=== PATIENT | female | born 1985 | race Caucasian/White ===

== ENCOUNTER 2017-03-17 18:34 | Inpatient (IN) ==
[2017-03-17] MEDS ORDERED: ONDANSETRON 4 MG/2 ML INJECTION IVP ONE (18:47)
[2017-03-17] MEDS ORDERED: NS 1,000 ML IV ONE ×2 (18:47→22:00)
--- NOTE | 2017-03-17 18:54 | Emergency Department Report ---
Headache HPI - General Chief Complaint: Headache <Huma Lubin - 03/17/17 18:54> Stated Complaint: vomitting <Huma Lubin - 03/17/17 18:54> Time Seen by Provider: 03/17/17 18:44 <Huma Lubin - 03/17/17 18:54> Source: patient <Huma Lubin - 03/17/17 18:54> Mode of arrival: ambulatory <Huma Lubin - 03/17/17 18:54> Limitations: no limitations <Huma Lubin - 03/17/17 18:54> - History of Present Illness HPI Narrative: She works at the [employer] here in [place]. Today she states that she had onset of headache. She has had headaches like this in the past but not this bad. She did start vomiting while at work. Had her come and get her and brought her to ER. Per her she had told him she passed out at work when she was vomiting. She is alert and oriented but very nauseated during initial examination. She is answering questions appropriately but occasional word will be garbled or non sense word. She does try to find the right word but does have trouble at times as well. She did not take anything prior to coming to ER. <Huma Lubin 03/17/17 20:00> MD Complaint: headache <Huma Lubin 03/17/17 18:54> Onset (ago): hour(s) <Huma Lubin 03/17/17 18:54> Onset description: gradual <Huma Lubin - 03/17/17 20:00> Location: diffuse <Huma Lubin 03/17/17 20:00> Severity: severe <Huma Lubin 03/17/17 20:00> Quality: aching <Huma Lubin 03/17/17 20:00> Relieving factors: nothing <Huma Lubin 03/17/17 20:00> Exacerbating factors: none <Huma Lubin - 03/17/17 20:00> Associated symptoms: nausea, vomiting <Huma Lubin - 03/17/17 20:00> Treatments prior to arrival: none <Huma Lubin 03/17/17 20:00> - Related Data Home Medications Medication Instructions Recorded Confirmed No known Home medications [No home 03/17/17 03/17/17 meds] <Huma Lubin 03/17/17 22:01> Allergies Allergy/AdvReac Type Severity Reaction Status Date / Time No Known Allergies Allergy Verified 03/17/17 19:45 <Huma Lubin 03/17/17 20:00> Review of Systems Constitutional: Denies: fever, chills, weakness <Huma Lubin 03/17/17 20: 00> Eyes: Denies: eye pain, vision change <Huma Lubin 03/17/17 20:00> ENT: Denies: ear pain, throat pain, congestion <Huma Lubin 03/17/17 20:00 > Cardiovascular: Denies: chest pain, palpitations, dyspnea on exertion <Huma Lubin 03/17/17 20:00> Respiratory: Denies: cough, dyspnea, wheezes <Huma Lubin 03/17/17 20:00> Gastrointestinal: Reports: nausea, vomiting. Denies: abdominal pain, diarrhea <Huma Lubin 03/17/17 20:00> Integumentary: Denies: rash <Huma Lubin 03/17/17 20:00> Neurological: Reports: headache. Denies: weakness, numbness, paresthesias < Huma Lubin - 03/17/17 20:00> [facility] Medical History Bacterial meningitis (Acute Medical) <Roshan Garrido H - 03/17/17 21:13> Clinic Medical History Bacterial meningitis (Acute Medical) <KatarinasheHuma Blake 03/17/17 22:37> Surgical History: bilateral knee scopes <Huma Lubin - 03/17/17 22:37> - Social History Smoking status: Never smoker <KatarinasheHuma Blake - 03/17/17 22:37> Substance use type: does not use <KatarinasheHuma Blake - 03/17/17 22:37> Alcohol intake frequency: does not drink <Huma Lubin [facility] 03/17/17 22:37> Physical Exam - Limitations Limitations: no limitations <Huma Lubin [facility] 03/17/17 20:00> - General General appearance: alert, other (is nauseated and has dry heaves and also appears in pain, keeps her eyes closed but does follow command) <Huma Lubin 03/17/17 20:00> - Normal Exams: Head:: Normocephalic without trauma <Huma Lubin 03/17/17 20:00> Eyes:: Pupils are PERRLA w/ EOMI, No scleral icterus, irritation, or foreign bodies noted <Huma Lubin 03/17/17 20:00> ENMT:: No facial trauma, nasal exudates, pharyngeal erythema, or exudates are noted <Huma Lubin 03/17/17 20:00> Neck:: Full range of motion, without adenopathy, JVD, bruits or thyromegaly < Huma Lubin 03/17/17 20:00> Chest/Respirations:: Clear all gray, with good airflow, and symmetry bilaterally <Huma Lubin 03/17/17 20:00> Cardiovascular:: Regular rate and rhythm, without murmur or gallop, Pulses 2+ all extremities, capillary refill, <2 seconds all extremities <Huma Lubin 03/17/17 20:00> Abdomen:: Bowel sounds positive, soft, non-tender, non-distended, no hepatosplenomegaly, masses or bruits noted <Huma Lubin [facility] 03/17/17 20:00> Lymphatic:: No lymphadenopathy, or lymphedema noted <KatarinaHuma [facility] 03/17/17 20:00> Musculoskeletal:: No tenderness, or deformity noted, good range of motion, all extremities <KatarinaHuma 03/17/17 20:00> Integumentary:: No rashes, hives, or bruising noted <KatarinaHuma 03/17/17 20:00> Neurological:: Patient is alert, and oriented, cranial nerves, motor/sensory/ cerebellar, exams w/o gross deficits, to observation <Huma Lubin N - 20:00> Psychiatric:: Patient exhibits, appropriate attention, emotion and affect < NoRichard nowaka Blake - 03/17/17 20:00> - Neck Neck exam: Present: normal inspection, full ROM, trachea midline. Absent: tenderness, meningismus <NoRichard nowaka Blake 03/17/17 22:37> - Expanded Neurological Exam Patient oriented to: Present: person, place, time <Huma Lubin N 03/17/17 20 :00> Speech: Absent: fluid speech (She does have one word garbled speech and does not alway make sense) <NoRichard nowaka N 03/17/17 20:00> Cranial nerves: Normal: EOM function (II, III, IV, ), facial palsy (VII), gag reflex (IX), tongue deviation (XII) <NoRichard nowaka N 03/17/17 20:00> Cerebellar function: Normal: heel to jefferson <NoRichard nowaka N - 03/17/17 20:00> Motor strength - LUE: 5/5 <Nold,Huma N - 03/17/17 20:00> Motor strength - RUE: 5/5 <NoldHuma N - 03/17/17 20:00> Motor strength - LLE: 5/5 <Nold,Huma N - 03/17/17 20:00> Motor strength - RLE: 5/5 <NoldHuma N - 03/17/17 20:00> Coma scale eye opening: spontaneous <NoldRicharda N - 03/17/17 20:00> Coma scale motor response: obeys commands <NoldRicharda N - 03/17/17 20:00> Coma scale verbal response: oriented <NoldRicharda N - 03/17/17 20:00> Coma scale total: 15 <NoldRicharda N - 03/17/17 23:54> Course Vital Signs Temperature 98.2 F 03/17/17 18:53 Pulse Rate 110 H 03/17/17 18:53 Respiratory Rate 26 H 03/17/17 18:53 Blood Pressure 113/59 03/17/17 18:53 Pulse Oximetry 99 03/17/17 18:53 Temperature 98.2 F 03/17/17 18:53 Pulse Rate 95 03/17/17 22:01 Respiratory Rate 16 03/17/17 22:01 Blood Pressure 114/74 03/17/17 22:01 Pulse Oximetry 99 03/17/17 22:01 <Rojasesrenea Lozano - 03/17/17 20:00> Procedures - Lumbar Puncture Time Out Performed: Yes <HemaRoshan [facility] 03/17/17 21:15> Patient Position: left lateral decubitus <HemaRoshan [facility] 03/17/17 21:15> Skin Prep: Povidone-Iodine 1% <Roshan Garrido [facility] 03/17/17 21:15> Local Anesthetic: [facility]ocaine 1[facility]15> Amount of anesthesia used (mL): 5 <[facility] 03/17/17 21:15> Spinal Needle Gauge: 22G <[facility] 03/17/17 21:15> Interspace Used: L4-L5 [facility] 03/17/17 21:15> Fluid Initially Obtained: cloudy <Roshan Garrido [facility] 03/17/17 21:15> Additional Comments: Patient had a slightly low opening pressure was not measured. We were able to fill to sample tubes with 2 mL of slightly cloudy CSF both, for a total of 4 mL. At which time the patient's CSF flow stopped. Repositioning of the needle did not improve flow, therefore the procedure was halted at that point. 2 vials , 2 mL each have been sent to the lab for evaluation. <HemaRoshan [facility] 03/17/17 21:15> Complications: none <Roshan Garrido [facility] 03/17/17 21:15> Headache - MDM Narrative Medical decision making narrative: 1954- Ct scan of head is negative. Did reevaluate patient. She was resting comfortably on cart and does responds to voice. She does follow command of opening eyes but does not answer questions. She does have episode of dry heaves and does attempt to sit up with this. She does appear restless but after dry heaves she calms down and closes her eyes. Does not answer questions. Appears mildly 2047 sedated. UDS and ETOH added to the labs. 2047- Did reevaluate patient. She does open her eyes but does not answer questions or follow all commands. Her is at bedside and states that she had texted him about 1530 that she had a headache, at 1630 that he should come get their daughter. When he showed up he picked them both up and they came to ER. He does not recall her having any history of headaches or symptoms such as this. Did discuss LP with him and he is ok with this procedure. 2120- LP complete and CSF sent to lab. 2227- Discussed labs including CSF results, CT scan, HPI, and exam with Dr Henry. He will accept patient for admission at this time. We did initiate 1 G Rocephin IV after LP done as well as Vancomycin 1 G as well. Second liter of IVF infusing as well. <Huma Lubin - 03/17/17 23:54> - Differential Diagnosis Differential diagnosis: Likely: migraine, tension headache, subarachnoid hemorrhage, headache, meningitis <Huma Lubin - 03/17/17 20:50> - Lab Data Attestation: I reviewed the patient's lab results. <Huma Lubin - 03/17/17 20:00> Result diagrams: 03/17/17 18:51 03/17/17 18:51 <Huma Lubin - 03/17/17 18:54> Lab Results 03/17/17 03/17/17 03/17/17 Range/Units 18:51 18:51 18:51 WBC 16.1 H (4.5-11.0) T/MM3 RBC 4.26 (4.00-5.20) M/MM3 Hgb 13.8 (12-16) GM/DL Hct 41.0 (36-46) % MCV 96.2 (80-100) UM3 MCH 32.4 (26-34) UUG MCHC 33.7 (31-37) GM/DL RDW Std Deviation 38.7 (36.9-50.2) FL Plt Count 160 (130-400) T/MM3 MPV 10.0 (9.4-12.4) UM3 Immature Gran % (Auto) Not performed Neut % (Auto) Not performed Lymph % (Auto) Not performed [place] % (Auto) Not performed Eos % (Auto) Not performed Baso % (Auto) Not performed Neut # (Auto) Not performed Lymph # (Auto) Not performed [place] # (Auto) Not performed Eos # (Auto) Not performed Baso # (Auto) Not performed Abs Immat Gran (auto) Not performed Neutrophils % (Manual) 74.0 H (33-66) % Band Neutrophils % 7.0 H (0-6) % Lymphocytes % (Manual) 17.0 L (23-45) % Monocytes % (Manual) 2.0 (0-9.0) % Neutrophils # (Manual) 11.9 H (1.8-7.7) T/MM3 Band Neutrophils # 1.1 T/MM3 Lymphocytes # (Manual) 2.7 (1-4.8) T/MM3 Monocytes # (Manual) 0.3 (0-0.8) T/MM3 RBC Morph Comment Normal Turbidity < 20 (0-20) Sodium 141 (134-144) MEQ/L Potassium 3.4 L (3.6-5) MEQ/L Chloride 105 (98-107) MEQ/L Carbon Dioxide 24 (22-30) MEQ/L Anion Gap 12 (5-15) MEQ/L BUN 10.0 (7-17) MG/DL Creatinine 0.6 L (0.7-1.2) MG/DL GFR Calculation 118 BUN/Creatinine Ratio 17 (6-26) RATIO Glucose 128 H (65-110) MG/DL Calculated Osmolality 272 (261-280) MOSM/KG Calcium 9.2 (8.4-10.2) MG/DL Total Bilirubin 0.70 (0.20-1.30) MG/DL Icterus Index < 2 (0-7) AST 21 (14-36) U/L ALT 36 (9-52) U/L Alkaline Phosphatase 61 (38-126) U/L Total Protein 7.1 (6.3-8.2) G/DL Albumin 4.4 (3.5-5.0) G/DL Globulin 2.7 (2.4-3.6) G/DL Albumin/Globulin Ratio 1.6 (1.1-2.2) RATIO Serum , Qual Negative (Negative) Specimen Hemolysis < 15 (0-25) Ur Collection Type Urine Color (YELLOW) Urine Clarity Urine pH (5.0-8.0) Ur Specific [place] (1.015-1.025) Urine Protein (NEGATIVE) Urine Glucose (UA) (NEGATIVE) Urine Ketones (NEGATIVE) Urine Occult Blood (NEGATIVE) Urine Nitrate (NEGATIVE) Urine Bilirubin (NEGATIVE) Urine Urobilinogen (NORMAL) EU/DL Ur Leukocyte Esterase (NEGATIVE) Urinalysis Comment CSF Appearance CSF Color CSF RBC (0-0) /MM3 CSF Tot Nucleated Cells (0-5) /MM3 CSF Neutrophils % CSF Lymphocytes CSF Monocytes CSF Eosinophils % CSF Basophils CSF Other Cells % CSF Glucose (40-70) MG/DL CSF Total Protein (12-60) MG/DL Urine Opiates Screen ng/mL Ur Oxycodone Screen ng/mL Urine Methadone Screen ng/mL Ur Propoxyphene Screen ng/mL Ur Barbiturates Screen ng/mL U Tricyclic Antidepress ng/mL Ur Phencyclidine Scrn ng/mL Ur Amphetamines Screen ng/mL U Methamphetamines Scrn ng/mL U Benzodiazepines Scrn ng/mL Urine Cocaine Screen ng/mL U Cannabinoids Screen ng/mL Alcohol, Quantitative (<10) MG/DL Cryptococcus Ag (Negative) CMV DNA Detection (Negative) E. coli (PCR) (Negative) H. influenzae DNA (Negative) HSV I DNA PCR (Negative) HSV II DNA PCR (Negative) HHV-6 DNA (PCR) (Negative) Listeria (PCR) (Negative) N. meningitidis (PCR) (Negative) Parechovirus (PCR) (Negative) Entero/Rhino (PCR) (Negative) Group B Strep (PCR) (Negative) Strep pneumoniae (PCR) (Negative) VZV DNA (PCR) (Negative) 03/17/17 03/17/17 03/17/17 Range/Units 18:51 20:01 21:27 WBC (4.5-11.0) T/MM3 RBC (4.00-5.20) M/MM3 Hgb (12-16) GM/DL Hct (36-46) % MCV (80-100) UM3 MCH (26-34) UUG MCHC (31-37) GM/DL RDW Std Deviation (36.9-50.2) FL Plt Count (130-400) T/MM3 MPV (9.4-12.4) UM3 Immature Gran % (Auto) Neut % (Auto) Lymph % (Auto) [place] % (Auto) Eos % (Auto) Baso % (Auto) Neut # (Auto) Lymph # (Auto) [place] # (Auto) Eos # (Auto) Baso # (Auto) Abs Immat Gran (auto) Neutrophils % (Manual) (33-66) % Band Neutrophils % (0-6) % Lymphocytes % (Manual) (23-45) % Monocytes % (Manual) (0-9.0) % Neutrophils # (Manual) (1.8-7.7) T/MM3 Band Neutrophils # T/MM3 Lymphocytes # (Manual) (1-4.8) T/MM3 Monocytes # (Manual) (0-0.8) T/MM3 RBC Morph Comment Turbidity (0-20) Sodium (134-144) MEQ/L Potassium (3.6-5) MEQ/L Chloride (98-107) MEQ/L Carbon Dioxide (22-30) MEQ/L Anion Gap (5-15) MEQ/L BUN (7-17) MG/DL Creatinine (0.7-1.2) MG/DL GFR Calculation BUN/Creatinine Ratio (6-26) RATIO Glucose (65-110) MG/DL Calculated Osmolality (261-280) MOSM/KG Calcium (8.4-10.2) MG/DL Total Bilirubin (0.20-1.30) MG/DL Icterus Index (0-7) AST (14-36) U/L ALT (9-52) U/L Alkaline Phosphatase (38-126) U/L Total Protein (6.3-8.2) G/DL Albumin (3.5-5.0) G/DL Globulin (2.4-3.6) G/DL Albumin/Globulin Ratio (1.1-2.2) RATIO Serum , Qual (Negative) Specimen Hemolysis (0-25) Ur Collection Type Urine Color (YELLOW) Urine Clarity Urine pH (5.0-8.0) Ur Specific [place] (1.015-1.025) Urine Protein (NEGATIVE) Urine Glucose (UA) (NEGATIVE) Urine Ketones (NEGATIVE) Urine Occult Blood (NEGATIVE) Urine Nitrate (NEGATIVE) Urine Bilirubin (NEGATIVE) Urine Urobilinogen (NORMAL) EU/DL Ur Leukocyte Esterase (NEGATIVE) Urinalysis Comment CSF Appearance CSF Color CSF RBC (0-0) /MM3 CSF Tot Nucleated Cells (0-5) /MM3 CSF Neutrophils % CSF Lymphocytes CSF Monocytes CSF Eosinophils % CSF Basophils CSF Other Cells % CSF Glucose (40-70) MG/DL CSF Total Protein (12-60) MG/DL Urine Opiates Screen Negative ng/mL Ur Oxycodone Screen Negative ng/mL Urine Methadone Screen Negative ng/mL Ur Propoxyphene Screen Negative ng/mL Ur Barbiturates Screen Negative ng/mL U Tricyclic Antidepress Negative ng/mL Ur Phencyclidine Scrn Negative ng/mL Ur Amphetamines Screen Negative ng/mL U Methamphetamines Scrn Negative ng/mL U Benzodiazepines Scrn Negative ng/mL Urine Cocaine Screen Negative ng/mL U Cannabinoids Screen Negative ng/mL Alcohol, Quantitative <10 (<10) MG/DL Cryptococcus Ag Negative (Negative) CMV DNA Detection Negative (Negative) E. coli (PCR) Negative (Negative) H. influenzae DNA Negative (Negative) HSV I DNA PCR Negative (Negative) HSV II DNA PCR Negative (Negative) HHV-6 DNA (PCR) Negative (Negative) Listeria (PCR) Negative (Negative) N. meningitidis (PCR) Negative (Negative) Parechovirus (PCR) Negative (Negative) Entero/Rhino (PCR) Negative (Negative) Group B Strep (PCR) Negative (Negative) Strep pneumoniae (PCR) Detected A (Negative) VZV DNA (PCR) Negative (Negative) 03/17/17 03/17/17 Range/Units 21:32 21:46 WBC (4.5-11.0) T/MM3 RBC (4.00-5.20) M/MM3 Hgb (12-16) GM/DL Hct (36-46) % MCV (80-100) UM3 MCH (26-34) UUG MCHC (31-37) GM/DL RDW Std Deviation (36.9-50.2) FL Plt Count (130-400) T/MM3 MPV (9.4-12.4) UM3 Immature Gran % (Auto) Neut % (Auto) Lymph % (Auto) [place] % (Auto) Eos % (Auto) Baso % (Auto) Neut # (Auto) Lymph # (Auto) [place] # (Auto) Eos # (Auto) Baso # (Auto) Abs Immat Gran (auto) Neutrophils % (Manual) (33-66) % Band Neutrophils % (0-6) % Lymphocytes % (Manual) (23-45) % Monocytes % (Manual) (0-9.0) % Neutrophils # (Manual) (1.8-7.7) T/MM3 Band Neutrophils # T/MM3 Lymphocytes # (Manual) (1-4.8) T/MM3 Monocytes # (Manual) (0-0.8) T/MM3 RBC Morph Comment Turbidity (0-20) Sodium (134-144) MEQ/L Potassium (3.6-5) MEQ/L Chloride (98-107) MEQ/L Carbon Dioxide (22-30) MEQ/L Anion Gap (5-15) MEQ/L BUN (7-17) MG/DL Creatinine (0.7-1.2) MG/DL GFR Calculation BUN/Creatinine Ratio (6-26) RATIO Glucose (65-110) MG/DL Calculated Osmolality (261-280) MOSM/KG Calcium (8.4-10.2) MG/DL Total Bilirubin (0.20-1.30) MG/DL Icterus Index (0-7) AST (14-36) U/L ALT (9-52) U/L Alkaline Phosphatase (38-126) U/L Total Protein (6.3-8.2) G/DL Albumin (3.5-5.0) G/DL Globulin (2.4-3.6) G/DL Albumin/Globulin Ratio (1.1-2.2) RATIO Serum , Qual (Negative) Specimen Hemolysis (0-25) Ur Collection Type Urine, catheter Urine Color Yellow (YELLOW) Urine Clarity Sl cloudy Urine pH 8.5 A (5.0-8.0) Ur Specific [place] 1.010 L (1.015-1.025) Urine Protein Negative (NEGATIVE) Urine Glucose (UA) Negative (NEGATIVE) Urine Ketones Negative (NEGATIVE) Urine Occult Blood Trace-intact (NEGATIVE) Urine Nitrate Negative (NEGATIVE) Urine Bilirubin Negative (NEGATIVE) Urine Urobilinogen 0.2 (NORMAL) EU/DL Ur Leukocyte Esterase Negative (NEGATIVE) Urinalysis Comment Microscopic not ind. CSF Appearance Cloudy CSF Color Colorless CSF RBC 2000 H (0-0) /MM3 CSF Tot Nucleated Cells 2980 H (0-5) /MM3 CSF Neutrophils 100 % CSF Lymphocytes Not performed CSF Monocytes Not performed CSF Eosinophils % Not performed CSF Basophils Not performed CSF Other Cells % Not performed CSF Glucose 30 L (40-70) MG/DL CSF Total Protein 531 H (12-60) MG/DL Urine Opiates Screen ng/mL Ur Oxycodone Screen ng/mL Urine Methadone Screen ng/mL Ur Propoxyphene Screen ng/mL Ur Barbiturates Screen ng/mL U Tricyclic Antidepress ng/mL Ur Phencyclidine Scrn ng/mL Ur Amphetamines Screen ng/mL U Methamphetamines Scrn ng/mL U Benzodiazepines Scrn ng/mL Urine Cocaine Screen ng/mL U Cannabinoids Screen ng/mL Alcohol, Quantitative (<10) MG/DL Cryptococcus Ag (Negative) CMV DNA Detection (Negative) E. coli (PCR) (Negative) H. influenzae DNA (Negative) HSV I DNA PCR (Negative) HSV II DNA PCR (Negative) HHV-6 DNA (PCR) (Negative) Listeria (PCR) (Negative) N. meningitidis (PCR) (Negative) Parechovirus (PCR) (Negative) Entero/Rhino (PCR) (Negative) Group B Strep (PCR) (Negative) Strep pneumoniae (PCR) (Negative) VZV DNA (PCR) (Negative) <Huma Lubin - 03/17/17 20:00> - Radiology Data Attestation: I reviewed the patient's radiology results. <Huma Lubin 10/26 20:00> Ct head: No acute intracranial abnormality <Huma Lubin 03/17/17 20:00> Disposition Clinical Impression: Bacterial meningitis <Huma Lubin 03/17/17 22:30> Disposition: 02 To [facility] Acute Care <Huma Lubin 03/17/17 22:30> Condition: Stable <Huma Lubin 03/17/17 22:30> Prescriptions: No Action No known Home medications [No home meds] 0 #0 misc <Huma Lubin - 22:01> Referrals: Lynne Cohn DO [Family Provider] - <Huma Lubin 03/17/17 18 :54> Time of Disposition: 22:27 <Huma Lubin 03/17/17 22:30> - Seen By: midlevel <Huma Lubin 03/17/17 22:30>
[2017-03-17] MEDS ORDERED: PROCHLORPERAZINE 10 MG/2 ML INJECTION IVP ONE (18:57)
[2017-03-17] MEDS ORDERED: KETOROLAC 30 MG/ML INJECTION IVP ONE (19:54)
--- OUTSIDE RECORDS SUMMARY | 2017-03-17 21:19 | External Medical Summary | Continuity of Care Document ---
:1985 Author Organization [facility] Address [address] [place], [place] [id number] Phone Care Team Providers Name Role Phone Amandeep Hutchison MD Unavailable Unavailable Allergies, Adverse Reactions, Alerts Substance Reaction Severity Status No Known Drug Allergies Unknown Active Medications Medication Instructions Dosage Effective Dates Status Comments (start - stop) fluconazole 150 mg take 1 tablet by 150 MG - Active tablet oral route once fluconazole 150 mg take 1 tablet by 150 MG - Active tablet oral route once PROBIOTIC (unknown - Active strength) FLONASE (unknown spray 1 spray by - Active strength) intranasal route every day in each nostril Sprintec (28) 0.25 take 1 tablet by Not Available - Active 3 packs mg-35 mcg tablet oral route every day take 3 placebo pills and then start a new pack Claritin 10 mg take 1 tablet by 10 MG - Active tablet oral route every day + DHA 28 - Active mg iron-975 mcg-200 mg oral pack Problems Condition Effective Dates (start - stop) Clinical Status 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, [address], [place], [place], [place], [id number], [place], [place] [id number], tel:[phone] [place]. [address] tel:[phone] [facility] -2016 [facility], [address], [place], [place], [place], [id number], [place] [id number], tel:[phone] [place]. [address] tel:[phone] [facility] In Womens -2016 [facility], [address], [place], [place], [place], [id number], [place] [id number], tel:[phone] [place]. [address] tel:[phone] [facility] Encntr for Hild Referring In Womens rn social work exam -2016 [facility]. Provider: [facility], (general) [address], (routine) Bryon Pedroza [place], [place], w/o abn [place], [address] [id number], [place], [place] [id number], [place], tel:[phone] [place], [address] tel:[phone]. [id number] tel:[phone] [facility]om[facility] -2016 [facility], [address], [place], [place], [place], [id number], [place] [id number], tel:[phone] [place]. [address] tel:[phone] [facility] Referring In Womens Follow-Up, -2015 [facility]. Provider: Health [facility], Routine [address], [place], [place], [place], [address] [id number], [place], [place] [id number], [place], tel:[phone] [place], [address] tel:[phone]. [id number] tel:[phone] [facility] Hild Referring In Womens -2014 [facility] Provider: [facility], [address], Bryon Pedroza, [place], [place], [address] [id number], [place], [place] [id number], [place], tel:[phone] [place], [address] tel:[phone]. [id number] tel:[phone] [facility] Vaginal Hild Referring In Womens -2014 [facility] Provider: Health [facility], Lesion [address], [place]za, [place], [place], [address] [id number], [place] [id number], [place], tel:[phone] [place], [address] tel:[phone]. [id number] tel:[phone] [facility] Hild Referring In Womens -2014 [facility] Provider: [facility], [address] [facility] [address], [place], [place], [address] [place], [place], [place], [place], [id number], [place], [place] [id number], [place], tel:[phone] [place]. [id number]. [address] tel:[phone] tel:[phone] [facility] -2014 [facility], [address], [place], [place], [place], [id number], [place] [id number], tel:[phone] [place]. [address] tel:[phone] [facility], [address], [place], [place], [place], [id number], [place], [id number], tel:[phone] [place]. [address] tel:[phone] Family History Family Member Diagnosis Age At Onset Mother Hypertension Paternal Grandmother Thyroid Disorder Paternal Grandfather Cardiovascular Disease Maternal Grandmother Osteoporosis Immunizations Vaccine Date Status Comments Tdap completed Source: New Immunization Record Influenza, seasonal, injectable, completed Source: Other Provider preservative free, 3 yrs or older Payers Payer name Insurance type Covered republican ID Authorization(s) [facility] [id number] [facility] [id number] [facility] CI [id number] [facility] CI [id number] Social History Type Description Quantity Date Captured Unknown Vital Signs Date / Height Weight BMI Pulse Blood Temperature Respiratory Body Head BMI Time: Rate Pressure Rate Surface Circumference percentile Area Unknown Chief Complaint And Reason For Visit Unknown Chief Complaint And Reason For Visit Reason For Referral Reason For Referral Unknown Plan Of Care Date Type Action Status Goal Lifestyle education regarding diet completed Goal Lifestyle education regarding diet completed Appointment [place] BOOKED Date Type Problem Goal Intervention Status Start Date Unknown. History Of Present Illness Encounter Date Complaint History Of Present Illness This patient has no known history of present illness Functional Status Encounter Date Functional Assessment Cognitive Assessment Unknown Medications Administered Medication Instructions Dosage Effective Dates (start - stop) Status Comments Drug Treatment Unknown Instructions Date Instruction Additional Information Giving encouragement to exercise Related to Body mass index 23.0-23.9 Giving encouragement to exercise Related to Body mass index 23.0-23.9 Lifestyle education regarding diet Related to Body mass index 23.0-23.9 Giving encouragement to exercise Related to Body mass index 25.0-25.9 Lifestyle education regarding diet Related to Body mass index 25.0-25.9 selecting a care provider gestational glucose lab screening placing baby to sleep on back placing baby to sleep in a crib, bassinet, or portable crib baby sleep environment includes a firm mattress and fitted sheet removing blankets, pillows, bumper pads, stuffed toys from baby sleep env.
--- OUTSIDE RECORDS SUMMARY | 2017-03-17 21:20 | External Medical Summary | Continuity of Care Document ---
:1985 Author Organization [facility] Address [address] [place], [place] [id number] Phone Care Team Providers Name Role Phone Amandeep Hutchison MD Unavailable Unavailable Allergies, Adverse Reactions, Alerts Substance Reaction Severity Status No Known Drug Allergies Unknown Active Medications Medication Instructions Dosage Effective Dates Status Comments (start - stop) fluconazole 150 take 1 tablet by 150 MG - Active mg tablet oral route once fluconazole 150 take 1 tablet by 150 MG - Active mg tablet oral route once PROBIOTIC - Active (unknown strength) FLONASE (unknown spray 1 spray by - Active strength) intranasal route every day in each nostril Sprintec (28) take 1 tablet by Not Available - Active 3 packs 0.25 mg-35 mcg oral route every tablet day take 3 placebo pills and then start a new pack Claritin 10 mg take 1 tablet by 10 MG - Active tablet oral route every day + DHA 28 - Active mg iron-975 mcg-200 mg oral pack fluconazole 10 take 10 milliliter 100 MG - No Longer mg/mL oral by oral route Active suspension every day Problems Condition Effective Dates (start - stop) Clinical Status 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 Health [facility], [address], [place], [place], [place], [id number], [place], [place] [id number], tel:[phone] [place]. [address] tel:[phone] [facility] In Wom[facility] -2016 [facility], [address], [place], [place], [place], [id number], [place] [id number], tel:[phone] [place]. [address] tel:[phone] [facility] In Womens -2016 [facility], [address], [place], [place], [place], [id number], [place] [id number], tel:[phone] [place]. 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 Provider: Joey ALONZO, (general) [address], (routine) Bryon [place], [place], [place] abn [place], [address] [id number], [place], [place], [place] [id number], [place], tel:[phone] [place], [address] tel:[phone]. [id number] tel:[phone] [facility] In Womens -2017 [facility], [address], [place], [place], [place], [id number], [place] [id number], tel:[phone] [place]. [address] tel:[phone] [facility] Hild Referring In Womens Follow-Up, -2015 [facility] Provider: Health [facility], Routine [address], [place], Bry[place] L, [place], [place], [address] [id number], [place], [place], [place] [id number], [place], tel:[phone] [place], [address] tel:[phone]. [id number] tel:[phone] [facility] Hild Referring In Womens -2014 [facility]. Provider: Health PA, [address], [place], Bry[place] L, [place], [place], [address] [id number], [place], [place], [place] [id number], [place], tel:[phone] [place], [address] tel:[phone]. [id number] tel:[phone] [facility] Hild Referring In Womens Discharge -2014 [facility] Provider: Health [facility], [place] [address], [place], Bry[place] L, [place], [place], [address] [id number], [place], [place] [id number], [place], [place]:[phone] [place], [address] tel:[phone]. [id number] tel:[phone] [facility] Hild Referring In Womens -2014 [facility] Provider: Health [facility], [address] [facility] [address], [place], [place], [address] [place], [place], [place], [place], [id number], [place], [place] [id number], [place], tel:[phone] [place]. [id number]. [address] tel:[phone] tel:[phone] [facility] -2014 [facility], [address], [place], [place], [place], [id number], [place], [place] [id number], tel:[phone] [place]. [address] tel:[phone] [facility] Hild In Women -2010 [facility] [place], [address], [place], [place], [place], [id number], [place], [id number], tel:[phone] [place]. [address] tel:[phone] Family History Family Member Diagnosis Age At Onset Mother Hypertension Paternal Grandmother Thyroid Disorder Paternal Grandfather Cardiovascular Disease Maternal Grandmother Osteoporosis Immunizations Vaccine Date Status Comments Tdap completed Source: New Immunization Record Influenza, seasonal, injectable, completed Source: Other Provider preservative free, 3 yrs or older Payers Payer name Insurance type Covered libertarian ID Authorization(s) [employer]/BCBS [id number] [facility] CI [id number] [facility] [id number] [facility] [id number] Social History Type Description Quantity Date Captured [...] Medications Administered Medication Instructions Dosage Effective Dates Status Comments (start - stop) fluconazole 10 take 10 milliliter 100 MG - No Longer mg/mL oral by oral route every Active suspension day Instructions Date Instruction Additional Information Giving encouragement [...]
--- OUTSIDE RECORDS SUMMARY | 2017-03-17 21:20 | External Medical Summary | Referral Summary ---
:1985 Author Organization [facility] Address [address] [place] [address] [place] [address] Care Team Providers Name Role Phone Lynne Cohn Primary Care Physician Encounter VC Date(s): 11/30/15 - 11/30/15 [facility] [address] [place] [phone] [place] Discharge Diagnosis: Dizziness Discharge Disposition: 01-Home or Self Care Attending Physician: Lynne Cohn DO Admitting Physician: Lynne Cohn DO Vital Signs Most recent to oldest [Reference Range]: 1 Temperature Tympanic [36.6-38.1 degC] 36.9 degC (11/30/15 12:58 PM) Peripheral Pulse Rate [60-100 bpm] 77 bpm (11/30/15 12:58 PM) Respiratory Rate [14-20 br/min] 16 br/min (11/30/15 12:58 PM) Blood Pressure [90-140/60-90 mmHg] 118/70 mmHg (11/30/15 12:58 PM) SpO2 98 % (11/30/15 12:58 PM) Problem List Condition Effective Dates Status Health Status Informant Acute pain(Confirmed) Active At risk for falls(Confirmed)1 Active Chronic constipation(Confirmed) Active Chronic headaches(Confirmed) Active Hepatitis B immune(Confirmed)2 Resolved (Confirmed) 09/20/14 - 05/15/15 Resolved Rubella immune(Confirmed)3 Resolved Varicella immune(Confirmed)4 Resolved 1This problem was added by Discern Expert. Positive Titer~Immune per [facility] [id number]/20/09 Positive Titer~Immune per [facility] reifrbr65/4/12 Positive Titer~ Immune per [facility] Records Allergies, Adverse Reactions, Alerts No Known Medication Allergies Medications Claritin mg, 0 Refill(s) Start Date: 05/08/15 Status: Orderedmultivitamin Daily, 0 Refill(s) Start Date: 03/21/14 Status: OrderedOrtho Micronor 0.35 mg oral tablet 0.35 mg 1 tabs, Oral, Daily, # 28 tabs, 0 Refill(s), other reason (Rx) Start Date: 11/30/15 Status: OrderedTylenol Caplet mg, Oral, q4hr, 0 Refill(s) Start Date: 05/15/15 Status: Ordered Results No data available for this section Immunizations Vaccine Date Refusal Reason tetanus/diphth/pertuss (Tdap) adult/adol 11/28/08 hepatitis B adult vaccine 10/07/07 hepatitis B adult vaccine 06/22/07 hepatitis B adult vaccine 04/06/07 influenza virus vaccine, inactivated 02/07/15 influenza virus vaccine, inactivated 02/21/14 measles/mumps/rubella virus vaccine 06/11/93 measles/mumps/rubella virus vaccine 08/23/88 Procedures Procedure Date Related Diagnosis Body Site Arthroscopic knee operation Tooth extraction Social History Social History Type Response Smoking Status Never smoker Assessment and Plan Extracted from: Title: Office Visit Note Author: Lynne Cohn DO Date: 11/30/15 Assessment/Plan Dizziness We will go ahead and get a CBC, BMP, TSH to evaluate the dizziness. Her orthostatic vital signs were normal. If herlab work reveals no cause we will give her the option ofa Holter monitor and/ora tilt table test for continued evaluation. Form was filled out for her wellness visit as she is up-to-date on her preventative health. She declined FLP today. Ordered: Basic Metabolic Panel CBC w/ Differential Office Visit Level 3 Est 24449 TSH with Reflex Free T4 Orders: norethindrone, 0.35 mg 1 tabs, Oral, Daily, # 28 tabs, 0 Refill(s), other reason (Rx)
--- OUTSIDE RECORDS SUMMARY | 2017-03-17 21:20 | External Medical Summary | Referral Summary ---
:1985 Author Organization [facility] Address [address] [place] [address] Care Team Providers Name Role Phone Amandeep Hutchison Primary Care Physician Encounter VC Date(s): 05/15/15 - 05/15/15 [facility] [address], [place] [address] Discharge Diagnosis: False labor Discharge Diagnosis: Discharge Disposition: 01-Home or Self Care Attending Physician: Sh[place] Robles MD Admitting Physician: Shasta Robles MD Vital Signs Most recent to oldest [Reference Range]: 1 Temperature Oral [35.8-37.3 degC] 36.9 degC (05/15/15 7:59 AM) Peripheral Pulse Rate [60-100 bpm] 68 bpm (05/15/15 7:59 AM) Heart Rate Monitored [60-100 bpm] 74 bpm (05/15/15 9:30 AM) Respiratory Rate [14-20 br/min] 18 br/min (05/15/15 7:59 AM) Blood Pressure [90-140/60-90 mmHg] 131/82 mmHg (05/15/15 9:30 AM) Problem List Condition Effective Dates Status Health Status Informant At risk for falls(Confirmed)1 Active Chronic constipation(Confirmed) Active Chronic headaches(Confirmed) Active Hepatitis B immune(Confirmed)2 Resolved Rubella immune(Confirmed)3 Resolved Varicella immune(Confirmed)4 Resolved 1This problem was added by Discern Expert. Positive Titer~Immune per [facility] jnevric94/20/09 Positive Titer~Immune per [facility] mqckpon28/4/12 Positive Titer~ Immune per [facility] Records Allergies, Adverse Reactions, Alerts No Known Medication Allergies Medications Benadryl 0 Refill(s) Start Date: 05/15/15 Status: OrderedClaritin mg, 0 Refill(s) Start Date: 05/08/15 Status: Orderedmultivitamin Daily, 0 Refill(s) Start Date: 03/21/14 Status: OrderedPriLOSEC Oral, Daily, 0 Refill(s) Start Date: 05/08/15 Status: OrderedTylenol Caplet mg, Oral, q4hr, 0 [...] Smoking Status Never smoker Assessment and Plan No data available for this section
--- OUTSIDE RECORDS SUMMARY | 2017-03-17 21:20 | External Medical Summary | Referral Summary ---
:1985 Author Organization [facility] Address [address] [place] [address] [place] [address] Care Team Providers Name Role Phone Lynne Cohn Primary Care Physician Encounter VC Date(s): 07/04/16 - 07/04/16 [facility] [address] [place] [phone] [place] Discharge Diagnosis: Benign mole Discharge Disposition: 01-Home or Self Care Attending Physician: Lynne Cohn DO Admitting Physician: Lynne Cohn DO Vital Signs Most recent to oldest [Reference Range]: 1 Temperature Oral [35.8-37.3 degC] 36.7 degC (07/04/16 8:28 AM) Peripheral Pulse Rate [60-100 bpm] 90 bpm (07/04/16 8:28 AM) Respiratory Rate [14-20 br/min] 20 br/min (07/04/16 8:28 AM) Blood Pressure [90-140/60-90 mmHg] 110/80 mmHg (07/04/16 8:28 AM) Problem List Condition Effective Dates Status Health Status Informant Acute pain(Confirmed) Active At risk for falls(Confirmed)1 Active Chronic constipation(Confirmed) Active Chronic headaches(Confirmed) Active Hepatitis B immune(Confirmed)2 Resolved (Confirmed) 09/20/14 - 05/15/15 Resolved Rubella immune(Confirmed)3 Resolved Varicella immune(Confirmed)4 Resolved 1This problem was added by Discern Expert. Positive Titer~Immune per [facility] /20/09 Positive Titer~Immune per [facility] /4/12 Positive Titer~ Immune per [facility] Records Allergies, [...] No data available for this section Immunizations Given and Recorded Vaccine Date Status Refusal Reason tetanus/diphth/pertuss (Tdap) adult/adol 11/28/08 Recorded hepatitis B adult vaccine 10/07/07 Recorded hepatitis B adult vaccine 06/22/07 Recorded hepatitis B adult vaccine 04/06/07 Recorded influenza virus vaccine, inactivated1 02/09/16 Recorded influenza virus vaccine, inactivated 02/07/15 Recorded influenza virus vaccine, inactivated 02/21/14 Recorded measles/mumps/rubella virus vaccine 06/11/93 Recorded measles/mumps/rubella virus vaccine 08/23/88 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 The lesion was cleansed with ChloraPrep 3 and then anest hetized with 1 mL of 1 percent lidocaine with epinephrine. Once anesthesia was achievedthe lesion was removed utilizing a derma blade. Hemostasis was achieved utilizing silver nitrate. Patient t olerated procedure well with no complications. Wound care was discussed. Return to clinic as needed. Ordered: Office Visit Level 3 Est 68350 Shave 1 Lesion; Trunk, Arms Or Legs (0.6 To 1.0 cm) [id number]
--- OUTSIDE RECORDS SUMMARY | 2017-03-17 21:22 | External Medical Summary | Continuity of Care Document ---
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, [address], [place], [place], [place], [id number], [place], [place] [id number], tel:[phone] [place]. [address] tel:[phone] [facility] Hild In Womens -2016 [facility], [address], [place], [place], [place], [id number], [place] [id number], tel:[phone] [place]. [address] tel:[phone] [facility] H[facility] In Womens -2016 [place], [address], [place], [place], [place], [id number], [place] [id number], tel:[phone] [place]. 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 Provider: Health [facility], (general) [address], (routine) Bryon Pedroza [place], [place], w/o abn [place], [address] [id number], [place], [place] [id number], [place], tel:[phone] [place], [address] tel:[phone]. [id number] tel:[phone] [facility] In Womens -2016 [facility], [address], [place], [place], [place], [id number], [place] [id number], tel:[phone] [place]. [address] tel:[phone] [facility] Hild Referring In Womens Follow-Up, -2015 [facility]. Provider: Health CHERI, Routine [address], [place] Pedroza, [place], [place], [address] [id number], [place], [place] [id number], [place], tel:[phone] [place], [address] tel:[phone]. [id number] tel:[phone] [facility] Hild Referring In Womens -2014 [place]. Provider: Health [place], [address], Bryon Pedroza, [place], [address] [id number], [place], [place] [id number], [place], tel:[phone] [place], [address] tel:[phone]. [id number] tel:[phone] [facility] Vaginal [facility] Referring In Womens -2014 [place]. Provider: Health CHERI, [place] [address], Bry[place] Pedroza, [place], [address] [id number], [place], [place] [id number], [place], tel:[phone] [place], [address] tel:[phone]. [id number] tel:[phone] [facility] Hild Referring In Womens -2014 [place]. Provider: Health [facility], [address] [place] [address] [address], [place], [place], [address] [place], [place], [place], [place], [id number], [place], [place] [id number], [place], tel:[phone] [place]. [id number]. [id number] tel:[phone] tel:[phone] [facility] Hild In Womens -2014 [facility], [address], [place], [place], [place], [id number], [place] [id number], tel:[phone] [place]. [address] tel:[phone] [facility], [address], Estefany Pedroza, [place], [place], [id number], [place], [id number], tel:[phone] [place]. [address] tel:[phone] Family History Family Member Diagnosis Age At Onset Mother Hypertension Paternal Grandmother Thyroid Disorder Paternal Grandfather Cardiovascular Disease Maternal Grandmother Osteoporosis Immunizations Vaccine Date Status Comments Tdap completed Source: New Immunization Record Influenza, seasonal, injectable, completed Source: Other Provider preservative free, 3 yrs or older Payers Payer name Insurance type Covered constitution party ID Authorization(s) [facility]BC[facility] [id number] [facility] CI [id number] [facility] CI [id number] [facility] CI [id number] Social History Type Description Quantity Date Captured [...]
--- OUTSIDE RECORDS SUMMARY | 2017-03-17 21:22 | External Medical Summary | Continuity of Care Document ---
:1985 Author Organization [facility] Allergies Active Description Code Type Severity Reaction Onset Reported/ Identified Relationship Clinical to Patient Status Yes No Known 94463 3 N/A N/A Drug 0 Allergies Medications Medication Packaging Start Stop Route Dosage Sig Date Date Unspecified 06/27/19 HYDROCORTISONE 5 17 apply by topical route 2 times every day to the affected area(s) Capsule 06/27/19 OMEPRAZOLE 5 17 take 1 capsule by oral route every day before a meal Gram 06/27/19 Unknown Medication 6 17 All purpose nipple ointment to be applied to bilateral nipples after each feeding and at bedtime Tablet 06/27/19 NORETHINDRONE 6 17 take 1 tablet by oral route every day Tablet 04/07/20 SPRINTEC 7 17 take 1 tablet by oral route every day take 3 placebo pills and then start a new pack Tablet FLUCONAZOLE 7 take 1 tablet by oral route once Tablet FLUCONAZOLE 7 take 1 tablet by oral route once Tablet 02/12/20 FLUCONAZOLE 7 17 take 10 milliliter by oral route every day Problems Date Dx Attending Type Code Diagnosis Diagnosed By Coded 12/29/2014 [facility] Robles V28.3 Ultrasonic Screening For Malformation 02/16/2015 [facility] Robles Z34.02 Routine Care, Primagravida 02/16/2015 [place] Robles Z3A.27 27 weeks gestation of Procedures Code Description Performed By Performed On 12/29/2014 16049 Ultrasnd exam of preg uterus, compl OB 02/16/2015 52744 Visit No Charge 02/16/2015 44837 Antepartum care only, 7+visits 05/15/2015 86315 Vaginal delivery T care Results Encounters ACCT No. Visit Discharge Status Pt. Type Provider Facility Loc./Unit Complaint Date/Time [id number] 07/27/2013 07/27/2013 [facility] Outpatient 08:02:00 23:59:59 [id number] 02/11/2017 02/11/2017 [facility] Outpatient [facility], 09:25:00 23:59:59 [place] Flores [id number] 02/11/2017 02/11/2017 [facility] [place], 09:06:00 23:59:59 [facility] Flores [id number] 02/11/2017 02/11/2017 [facility] Outpatient [place], 09:02:00 23:59:59 [place] Flores [id number] 01/23/2017 01/23/2017 [facility] Outpatient [place], 10:20:00 23:59:59 [place] Sandra [id number] 09/02/2016 09/02/2016 [facility] Out[facility] [place], 11:56:00 23:59:59 [place] Sandra [id number] 09/02/2016 09/02/2016 [facility] Outpatient [place], 11:54:00 23:59:59 [place] Flores [id number] 07/04/2016 07/04/2016 [facility] Outpatient [place], 10:45:00 23:59:59 [place] Flores [id number] 05/22/2016 05/22/2016 [facility] Outpatient [place], 15:15:00 23:59:59 [place] Sandra [id number] 05/22/2016 05/22/2016 [facility] Outpatient [place], 15:13:00 23:59:59 [place] Sandra [id number] 07/19/2015 07/19/2015 [facility] Outpatient [place], 09:32:00 23:59:59 [place] A [id number] 07/10/2015 07/10/2015 [facility] Outpatient [place], 14:18:00 23:59:59 [place] Sandra [id number] 06/26/2015 06/26/2015 [facility] Outpatient [place], 13:10:00 23:59:59 [place] A [id number] 05/22/2015 05/22/2015 [facility] Outpatient [place], 09:17:00 23:59:59 [place] A [id number] 05/19/2015 05/19/2015 [facility] Outpatient [place], 08:28:00 23:59:59 [place] A [id number] 05/17/2015 05/17/2015 [facility] Out[facility] [place], 11:13:00 23:59:59 [place] A [id number] 05/15/2015 05/15/2015 [facility] Outpatient [place], 12:01:00 23:59:59 [place] A [id number] 05/15/2015 05/15/2015 [facility] Outpatient [place], 11:32:00 23:59:59 [place] A [id number] 05/15/2015 05/15/2015 [facility] Outpatient [place], 00:00:00 23:59:59 [place] A [id number] 05/11/2015 05/11/2015 [facility] Outpatient [place], 08:50:00 23:59:59 [place] A [id number] 05/08/2015 05/08/2015 [facility] Outpatient [place], 15:54:00 23:59:59 [place] A [id number] 05/02/2015 05/02/2015 [facility] Outpatient [place], 09:33:00 23:59:59 [place] A [id number] 05/02/2015 05/02/2015 [facility] Out[facility] [place], 08:30:00 23:59:59 [place] A [id number] 04/27/2015 04/27/2015 [facility] Outpatient [place], 08:50:00 23:59:59 [place] A [id number] 04/20/2015 04/20/2015 [facility] Outpatient [place], 08:50:00 23:59:59 [place] A [id number] 04/13/2015 04/13/2015 [facility] Outpatient [place], 08:50:00 23:59:59 [place] A [id number] 03/30/2015 03/30/2015 [facility] Outpatient [place], 14:23:00 23:59:59 [place] A [id number] 03/30/2015 03/30/2015 [facility] Out[facility] [place], 08:50:00 23:59:59 [place] A [id number] 03/17/2015 03/17/2015 [facility] Out[facility] [place], 08:50:00 23:59:59 [place] A [id number] 03/15/2015 03/15/2015 [facility] Outpatient [place], 08:14:00 23:59:59 [place] A [id number] 03/14/2015 03/14/2015 [facility] Outpatient [place], 17:00:00 23:59:59 [place] A [id number] 03/02/2015 03/02/2015 [facility] Outpatient [place], 08:50:00 23:59:59 [place] A [id number] 02/17/2015 02/17/2015 [facility] Outpatient [place], 12:13:00 23:59:59 [place] A [id number] 02/17/2015 02/17/2015 [facility] Outpatient [place], 12:13:00 23:59:59 [place] Flores [id number] 02/16/2015 02/16/2015 [facility] Outpatient [place], 08:50:00 23:59:59 [place] Flores [id number] 02/03/2015 02/03/2015 [facility] Outpatient [place], 08:48:00 23:59:59 [place] Flores [id number] 01/26/2015 01/26/2015 [facility] Outpatient [place], 08:50:00 23:59:59 [place] Flores [id number] 01/12/2015 01/12/2015 [facility] Outpatient [place], 15:49:00 23:59:59 [place] Flores [id number] 01/09/2015 01/09/2015 [facility] Outpatient [place], 11:01:00 23:59:59 [place] Flores [id number] 12/29/2014 12/29/2014 [facility] Outpatient [place], 08:30:00 23:59:59 [place] Flores [id number] 12/29/2014 12/29/2014 [facility] Outpatient [place], 08:00:00 23:59:59 [place] Flores [id number] 07/04/2016 Document 11:24:01 Registration [id number] 07/04/2016 Document 11:23:45 Registration
--- OUTSIDE RECORDS SUMMARY | 2017-03-17 21:22 | External Medical Summary | Referral Summary ---
:1985 Author Organization [facility] Address [address] [place] [address] Care Team Providers Name Role Phone Amandeep Hutchison Primary Care Physician Encounter Date(s): 05/08/15 - 05/08/15 [facility] [address] [place], [place] [address] Discharge Diagnosis: Discharge Diagnosis: Urinary incontinence Discharge Disposition: 01-Home or Self Care Attending Physician: [place] Robles MD Admitting Physician: [place] Robles MD Vital Signs Most recent to oldest [Reference Range]: 1 Temperature Oral [35.8-37.3 degC] 36.3 degC (05/08/15 8:26 PM) Peripheral Pulse Rate [60-100 bpm] 100 bpm (05/08/15 8:26 PM) Heart Rate Monitored [60-100 bpm] 88 bpm (05/08/15 11:00 PM) Respiratory Rate [14-20 br/min] 20 br/min (05/08/15 8:26 PM) Blood Pressure [90-140/60-90 mmHg] 121/84 mmHg (05/08/15 11:00 PM) Problem List Condition Effective Dates Status Health Status Informant Chronic constipation(Confirmed) Active Chronic headaches(Confirmed) Active Hepatitis B immune(Confirmed)1 Resolved Rubella immune(Confirmed)2 Resolved Varicella immune(Confirmed)3 Resolved Positive Titer~Immune per [facility] xwstfuy28/20/09 Positive Titer~Immune per [facility] wurvtlm83/4/12 Positive Titer~Immune per [facility] Records Allergies, Adverse Reactions, Alerts No Known Medication Allergies Medications Claritin mg, 0 Refill(s) Start Date: 05/08/15 Status: Orderedmultivitamin Daily, 0 Refill(s) Start Date: 03/21/14 Status: OrderedPriLOSEC Oral, Daily, 0 Refill(s) Start Date: 05/08/15 Status: Ordered Results Chemistry Most recent to oldest [Reference Range]: 1 AmniSure ROM [Negative] Negative 1 (05/08/15 8:35 PM) 1Result Comment: Presence of blood collected with the swab can lead to false positives. The performance of the AnmiSure has not been established in the presence of the following contaminants: meconium, anti-fungal creams or suppositories, K-Y Jelly, Monistat, Baby Powder (starch and Talc), Replens and Baby Oil. In very rare cases when a sample is taken 12 hours or later after a rupture a false negative result may occur due to obstruction of the rupture by fetus or resealing of the amniotic sac.Urinalysis Most recent to oldest [Reference Range]: 1 UA Color Yellow (05/08/15 9:15 PM) UA Appear Clear (05/08/15 9:15 PM) UA pH [5.0-8.0] 6.0 (05/08/15 9:15 PM) UA Leuk Est [Negative] Negative (05/08/15 9:15 PM) UA Nitrite [Negative] Negative (05/08/15 9:15 PM) UA Protein [Negative] Negative (05/08/15 9:15 PM) UA Glucose [Negative] Pos 3+ *ABN* (05/08/15 9:15 PM) UA Ketones [Negative] Negative (05/08/15 9:15 PM) UA Urobilinogen [<1.0] Negative (05/08/15 9:15 PM) UA Bili [Negative] Negative (05/08/15 9:15 PM) UA Blood [Negative] Negative (05/08/15 9:15 PM) UA Spec Grav [1.003-1.030] 1.005 (05/08/15 9:15 PM) Type Clean Catch (05/08/15 9:15 PM) Microbiology Reports TEST:Affirm Vaginitis Panel STATUS:Auth (Verified) BODY SITE: SOURCE:Cervix/Vaginal COLLECTED DATE/TIME:05/08/15 9:15 PMAffirm Vaginitis PanelNegative for Trichomonas vaginalis Negative for Gardnerella vaginalis Negative for Daily species Immunizations Vaccine Date Refusal Reason tetanus/diphth/pertuss (Tdap) [...]
--- OUTSIDE RECORDS SUMMARY | 2017-03-17 21:22 | External Medical Summary | Continuity of Care Document ---
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, [address], [place], [place], [place], [id number], [place], [place] [id number], tel:[phone] [place]. [address] tel:[phone] [facility] H[facility] In Womens -2016 [place], [address], [place], [place], [place], [id number], [place] [id number], tel:[phone] [place]. [address] tel:[phone] [facility] Encntr for Hild Referring In Womens value analyst exam -2016 [facility]. Provider: Health CHERI, (general) [address], (routine) Bryon Pedroza, [place], w/o abn [place], [address] [id number], [place], [place], [place] [id number], [place], tel:[phone] [place], [address] tel:[phone]. [id number] tel:[phone] [facility] Hild In Womens -2016 [place], [address], [place], [place], [place], [id number], [place], [place] [id number], tel:[phone] [place]. [address] tel:[phone] [facility] Hild Referring In Womens Follow-Up, -2015 [facility]. Provider: Health CHERI, Routine [address], Bryon Pedroza, [place], [place], [address] [id number], [place], [place], [place] [id number], [place], tel:[phone] [place], [address] tel:[phone]. [id number] tel:[phone] [facility] Hild Referring In Womens -2014 [place]. Provider: Health CHERI, [address], Bryon Pedroza L, [place], [place], [address] [id number], [place], [place] [id number], [place], tel:[phone] [place], [address] tel:[phone]. [id number] tel:[phone] [facility] Hild Referring In Womens Discharge -2014 [place]. Provider: Health CHERI, [place] [address], Bryon Pedroza L, [place], [place], [address] [id number], [place], [place], [place] [id number], [place], tel:[phone] [place], [address] tel:[phone]. [id number] tel:[phone] [facility] Referring In Womens -2014 [place]. Provider: Health CHERI, [address] [place] [address], [place], A, [address] [place], [place], [place], [id number], [place], [place] [id number], [place], tel:+ [place]. [phone]. [address] tel:[phone] tel:[phone] [facility] Hild In Womens -2014 [place], [address], [place], [place], [place], [id number], [place], [place] [id number], tel:[phone] [place]. [address] tel:[phone] [facility] Hild In Womens [facility], [address], [place], [place], [place], [id number], [place], [place] [address], tel:[phone] [place]. [address] tel:[phone] Family History Family Member Diagnosis Age At Onset Mother Hypertension Paternal Grandmother Thyroid Disorder Paternal Grandfather Cardiovascular Disease Maternal Grandmother Osteoporosis Immunizations Vaccine Date Status Comments Tdap completed Source: New Immunization Record Influenza, seasonal, injectable, completed Source: Other Provider preservative free, 3 yrs or older Payers Payer name Insurance type Covered green party ID Authorization(s) [employer]/BCBS BL [id number] [facility] CI [id number] [facility] [id number] [facility] [id number] Social History Type Description Quantity Date Captured [...]
[2017-03-17] MEDS ORDERED: CEFTRIAXONE (ER USE ONLY) 1 GM in NS 100 ML IV ONE ×2 (21:27→23:09)
[2017-03-17 23:35] VITALS: BMI 24.5
--- NOTE | 2017-03-17 23:38 | History & Physical Report ---
History of Present Illness Date: 03/17/17 Chief complaint: headache and nausea on ED presentation HPI: Please note that the patient was admitted with telemedicine and nursing assistance on 03/17/2017 Mrs. Villa is a 31yo woman with h/o knee arthroscopy and in the last 8 months some recurrent sinusitis who presents with onset of not feeling was after noon and texting her at 1330 re this. He provides history along with ED provider as patient now has GCS of 8 (2+3+3). Nausea and vomiting along with severe headache were reported prior to ED eval with then zofran and compazine given. She was alert on ED arrival, and then became more confused and even agitated. CT Head was normal with subsequent LP with CSF consistent with bacterial meningitis and now gram stain c/w Strep pneumo. No emesis the last ours, with the patient occasionally moaning on transfer but not now. No antibiotics for 2 months prior to a gram of ceftriaxone and vancomycin in the ED. denies any other recent fevers, chills, headaches or illness except the sinusitis months ago. 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-old Medications Home Medications Medication Instructions Recorded Confirmed Type No known Home medications [No home 03/17/17 03/17/17 History meds] Allergies Allergy/AdvReac Type Severity Reaction Status Date / Time No Known Allergies Allergy Verified 03/17/17 19:45 Exam Vital Signs: Temperature 98.2 F 03/17/17 18:53 Pulse Rate 95 03/17/17 22:01 Respiratory Rate 16 03/17/17 22:01 Blood Pressure 114/74 03/17/17 22:01 Pulse Oximetry 99 03/17/17 22:01 Telemetry Rhythm: Sinus Rhythm - Constitutional Present: no acute distress, somnolent, obtunded - Routine HEENT Exam Head: Present: normocephalic - Routine Respiratory Exam Present: CTA bilaterally - Routine Cardiovascular Exam Present: RRR, S1, S2, no murmur - Routine Abdominal Exam Present: soft, normoactive bowel sounds - Routine Neurological Exam GCS 8 or less now with no lateralizing signs and pupils symmetric Results - Labs CBC & Chem 7: 03/17/17 18:51 03/17/17 18:51 Assessment and Plan (1) Bacterial meningitis Current visit: Yes Status: Acute Assessment and Plan: Acute bacterial (Strep pneumoniae) meningitis with metabolic encephalopathy-- ICU admit as glucose 30 , WBC 2980 with 100%PMNs, and TProtein 531 very concerning. NPO, IVF, Ceftriaxone 2q q12, Vancomycin 20mg/kg q12, and dexamethasone 10mg IV q6 all indicated. IVF and prn for nausea. Greatest risk is risk for respiratory decline/aspiration now. AM labs with lactate and vbg. Unlikely severe sepsis though with bicarb 24, and note BP fine. Unlikely Ig deficiency as no recurrent infections as a youth, but consider ID consult. Increased risk for the above with recent sinus infections. SCDs Full Code Resuscitation Status: Full Code Hospital Course Summary Disclaimer: The visit summary below is not to be considered part of the above Progress Note.
[2017-03-17] MEDS: 1/2 NS with KCL 20mEq 1,000 ML IV SCH (23:58)
[2017-03-17] MEDS: DEXAMETHASONE 4 MG/ML INJECTION IVP SCH (23:59)
[2017-03-18] MEDS: ONDANSETRON 4 MG/2 ML INJECTION IVP PRN ×3 (00:11→20:15)
[2017-03-18] MEDS: DEXAMETHASONE 4 MG/ML INJECTION IVP SCH ×4 (05:24→23:35)
[2017-03-18] MEDS: ACETAMINOPHEN 650 MG SUPPOSITORY PR PRN ×2 (05:34→15:57)
--- NOTE | 2017-03-18 08:12 | CT Scan Report ---
Indication: headache, garbled speech PROCEDURE: CT head/brain wo con: Encounter: Initial Comparison: None Technique: Axial CT images through the head were performed without contrast. Iterative Reconstruction dose reducing technique was utilized. FINDINGS: The ventricles are of normal size, shape, and configuration for the patient's age. There is no evidence of acute intracranial hemorrhage, midline displacement, or mass effect. The CT attenuation of the brain parenchyma is normal within the cerebellum, brain stem, and cerebral hemispheres. The tympanic cavities and mastoid air cells are free of appreciable disease. There are no definite fractures of the skull base, calvarium, or visualized portion of the midface. Moderate left maxillary sinus mucosal thickening. Postoperative changes in the left ethmoid air cells with mucosal disease. IMPRESSION: No CT evidence of acute intracranial abnormality. There is a preliminary report by [employer]. .
[2017-03-18] MEDS: CEFTRIAXONE 2 GM in NS 100 ML IV SCH ×2 (08:33→20:18)
[2017-03-18] MEDS ORDERED: ENOXAPARIN 40 MG/0.4 ML INJECTION SQ SCH (09:00)
--- NOTE | 2017-03-18 12:19 | Pulmonology Consult Note ---
History of Present Illness Consult date: 03/18/17 Reason for consult: other (meningitis) History of present illness: HPI: This is a 31 year old woman admitted with severe headache, nausea and vomiting. LP showed glucose 30, Prot 500, with nearly 3000 wbc's in her LP. PCR positive for S pneumo. She has been febrile with altered mental status, severe sepsis with elevated lactate. According to mother patient has severe headaches and chronic sinusitis. She had a severe headache over the weekend. She went to work yesterday and actually "passed out" while at work. Mom believes she lost consciousness. She then started vomiting and was brought to the ED in [place]. I was asked to see her for critical care services She had sinus surgery in Jan 2017. Details of that are unknown at this time Per the admission history: Mrs. Villa is a 31yo woman with h/o knee arthroscopy and in the last 8 months some recurrent sinusitis who presents with onset of not feeling was after noon and texting her at 1330 re this. He provides history along with ED provider as patient now has GCS of 8 (2+3+3). Nausea and vomiting along with severe headache were reported prior to ED eval with then zofran and compazine given. She was alert on ED arrival, and then became more confused and even agitated. CT Head was normal with subsequent LP with CSF consistent with bacterial meningitis and now gram stain c/w Strep pneumo. No emesis the last hours, with the patient occasionally moaning on transfer but not now. No antibiotics for 2 months prior to a gram of ceftriaxone and vancomycin in the ED. denies any other recent fevers, chills, headaches or illness except the sinusitis months ago. Review of Systems ROS unobtainable: due to mental status. 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 Review of Systems ROS unobtainable: due to mental status [facility] Patient Stated Medical History Other Respiratory sinus infx easily Other Infectious Yes: spinal meningitis current Clinic Medical History Bacterial meningitis (Acute Medical) Surgical History: bilateral knee scopes - Social History Smoking status: Never smoker Medications Home Medications Medication Instructions Recorded Confirmed Type No known Home medications [No home 03/17/17 03/17/17 History meds] Allergies Allergy/AdvReac Type Severity Reaction Status Date / Time No Known Allergies Allergy Verified 03/17/17 19:45 Exam Vital signs: Temperature 100.2 F 03/18/17 08:00 Pulse Rate 76 03/18/17 08:22 Respiratory Rate 22 03/18/17 08:22 Blood Pressure 103/63 03/18/17 07:00 Pulse Oximetry 100 03/18/17 08:22 - Constitutional moderate distress, well developed, agitated - Routine HEENT Exam Head: Present: normocephalic, atraumatic Eye: Absent: conjunctival icterus ENT: Present: mucous membranes dry - Routine Respiratory Exam Present: CTA bilaterally. Absent: accessory muscle use - Routine Cardiovascular Exam Present: tachycardia - Routine Abdominal Exam Present: soft - Routine Extremities Exam Absent: cyanosis, clubbing - Routine Skin Exam Present: warm Comments: mild diaphoresis - Routine Neurological Exam Absent: alert, oriented X3, motor deficit - Routine Psychiatric Exam Present: anxious, agitated. Absent: normal thought process Results - Laboratory Findings CBC and BMP: 03/18/17 04:15 03/18/17 09:49 Abnormal lab findings: Abnormal Labs 03/18/17 03/18/17 03/18/17 00:41 04:15 04:15 WBC 26.8 H* D Neutrophils % (Manual) 78.0 H Band Neutrophils % 15.0 H Lymphocytes % (Manual) 2.0 L Neutrophils # (Manual) 20.9 H Lymphocytes # (Manual) 0.5 L Monocytes # (Manual) 1.3 H VBG pCO2 35 L VBG HCO3 21 L VBG Base Excess -3.8 L Potassium Chloride Carbon Dioxide BUN Creatinine Glucose Calcium Alkaline Phosphatase Plasma Lactate 4.6 H* 03/18/17 03/18/17 04:15 09:49 WBC Neutrophils % (Manual) Band Neutrophils % Lymphocytes % (Manual) Neutrophils # (Manual) Lymphocytes # (Manual) Monocytes # (Manual) VBG pCO2 VBG HCO3 VBG Base Excess Potassium 3.5 L Chloride 108 H 111 H Carbon Dioxide 19 L 21 L BUN 6.0 L 6.0 L Creatinine 0.6 L 0.6 L Glucose 165 H 142 H Calcium 8.0 L D 7.9 L Alkaline Phosphatase 34 L D Plasma Lactate 5.1 H* - Diagnostic Findings Additional studies: CT Head reviewed. Left Maxillary and Ethmoid sinus disease, no intracranial Assessment and Plan - Time Spent With Patient Total time spent is greater than 50% in coordination of care (as documented) at patient's floor/unit and/or counseling patient: greater than 35 minutes (I was at the bedside from 12:00 until 12:36)
[2017-03-18] MEDS: MORPHINE SULFATE 2mg INJECTION IVP PRN ×5 (12:39→20:26)
[2017-03-18] MEDS: 1/2 NS with KCL 20mEq 1,000 ML IV SCH ×3 (13:41→23:36)
[2017-03-18] MEDS: SALINE FLUSH 10ml SYRINGE IVF PRN (22:18)
[2017-03-18] MEDS ORDERED: METOCLOPRAMIDE 10mg/2ml INJECTION IVP PRN (23:48)
[2017-03-19] MEDS: MORPHINE SULFATE 2mg INJECTION IVP PRN ×6 (00:15→15:09)
[2017-03-19] MEDS: SALINE FLUSH 10ml SYRINGE IVF PRN ×2 (04:24→23:42)
[2017-03-19] MEDS: ONDANSETRON 4 MG/2 ML INJECTION IVP PRN (04:53)
[2017-03-19] MEDS: DEXAMETHASONE 4 MG/ML INJECTION IVP SCH ×4 (05:53→23:41)
--- NOTE | 2017-03-19 08:36 | Infectious Disease Consult ---
Infectious Disease Consult Date of Consultation: 03/19/17 Requesting Physician: Tootie Trevizo Reason for Consultation: antibiotic recs History of Present Illness: Mrs. Villa is a 31 y/o woman who had sinus surgery in January. She has a h/ o chronic sinusitis and allergies. She developed "pink eye" with some drainage last Friday. Throughout the day on Friday, she developed worsening headache. She was at work, and then progressively felt worse and had neck pain and back pain. She then started having N/V and then passed out at work. She was brought here Friday late afternoon and was very confused, not following commands and lethargic. Head CT was unremarkable. She had an LP which showed nearly 3000K of WBC, glucose of 30, protein of 531. CSF panel was positive for S. pneumo, and the CSF gram stain and culture are consistent with this diagnosis. She was started on ceftriaxone, Vanco, decadron and has improved. Today the S. pneumo is reported as sensitive to PCN. She still has some headache, neck pain, back pain and some blurry vision, but is answering questions appropriately and wants to eat breakfast. Medications Home Medications Medication Instructions Recorded Confirmed Type No known Home medications [No home 03/17/17 03/17/17 History meds] Allergies Allergy/AdvReac Type Severity Reaction Status Date / Time No Known Allergies Allergy Verified 03/17/17 19:45 PFS Patient Stated Medical History Other Respiratory sinus infx easily Other Infectious Yes: spinal meningitis current Clinic Medical History Bacterial meningitis (Acute Medical) Seasonal allergies Recurrent sinusitis Surgical History: bilateral knee scopes Family History: Reviewed and noncontributory - Social History Smoking status: Never smoker Household members: family 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 Absent: arthralgias - Integumentary/Breasts Integumentary: Absent: rash - Neurological Neurological: Present: confusion (improved), headache(s) Exam Vital Signs: Temperature 99.7 F 03/19/17 04:00 Pulse Rate 72 03/19/17 08:00 Respiratory Rate 18 03/19/17 05:00 Blood Pressure 118/69 03/19/17 04:28 Pulse Oximetry 99 03/19/17 04:28 Height/Weight/BMI: Height 1.63 m Weight 66.6 kg Body Mass Index 24.5 - Constitutional Present: no acute distress - Routine HEENT Exam Head: Present: normocephalic, atraumatic Eye: Present: EOMI, PERRL ENT: Present: mucous membranes moist, oropharynx clear - Routine Neck Exam Present: meningismus (stiffness with flexion) - Routine Respiratory Exam Present: CTA bilaterally. Absent: accessory muscle use - Routine Cardiovascular Exam Present: RRR. Absent: murmur - Routine Abdominal Exam Present: soft, non distended, non tender. Absent: rebound, guarding Comments: hypoactive bowel sounds - Routine Exam Comments: suggs in place - Routine Extremities Exam Absent: cyanosis, clubbing, edema - Routine Skin Exam Present: intact. Absent: rash - Routine Neurological Exam Present: alert, oriented X3, CN II-XII intact, moving all extremities, normal speech. 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 When she is ready for discharge, will most likely change back to ceftriaxone 2gm IV q12 hours to complete 14 days total. Continue decadron for 4 days total. I'll check her for HIV, and evaluate her for hypogammaglobulinemia.
[2017-03-19] MEDS ORDERED: ACETAMINOPHEN 500 MG TABLET PO PRN (08:37)
[2017-03-19] MEDS: PENICILLIN G IV SCH (09:45)
[2017-03-19] MEDS: DEXTROSE IV SCH (09:45)
[2017-03-19] MEDS: ENOXAPARIN 40 MG/0.4 ML INJECTION SQ SCH (09:48)
[2017-03-19] MEDS: HYDROCODONE/APAP 5mg/325mg TABLET PO PRN ×2 (11:28→17:48)
--- NOTE | 2017-03-19 13:41 | Pulmonology Progress Note ---
Subjective Principal diagnosis: meningitis Interval history: Pt is currently resting but wakes to voice. States she is doing ok, still with neck pain and DEGROOT otherwise doing well. A/O today. Exam Vital signs: Temperature 99.0 F 03/19/17 09:00 Pulse Rate 72 03/19/17 12:00 Respiratory Rate 16 03/19/17 09:00 Blood Pressure 114/70 03/19/17 09:00 Pulse Oximetry 99 03/19/17 09:00 - Constitutional no acute distress, average body habitus - Routine HEENT Exam Head: Present: normocephalic, atraumatic Eye: Present: EOMI, PERRL - Routine Neck Exam Present: supple, full ROM - Routine Respiratory Exam Present: CTA bilaterally - Routine Cardiovascular Exam Present: RRR, no murmur - Routine Abdominal Exam Present: soft, normoactive bowel sounds - Routine Extremities Exam Present: no edema, full ROM - Routine Back/Spine/Pelvis Exam Back/Spine: Present: full ROM - Routine Skin Exam Present: intact, dry - Routine Neurological Exam Present: alert, oriented X3, CN II-XII intact - Routine Psychiatric Exam Present: normal affect, normal thought process - Urinary Catheter Management Urethral Cath placed during this visit: yes, but has since been removed by the nurse Insertion date: 03/18/17 Insertion time: 04:40 Removal date: 03/19/17 Removal time: 08:30 Assessment and Plan - Assessment and Plan IMPRESSIONS: Acute bacterial meningitis with pneumococcus Acute toxic encephalopathy Severe sepsis without shock chronic maxillary sinusitis Plan: Pt currently on RA, A/O and doing well. Continue on abx therapy with PCN G per ID, will need OP abx to total 14 days treatment. continue on decadron for edema. - Time Spent With Patient Total time spent is greater than 50% in coordination of care (as documented) at patient's floor/unit and/or counseling patient: less than 15 minutes
--- NOTE | 2017-03-19 21:58 | Progress Note ---
- Date 03/19/17 Subjective: The patient was seen early this morning in CCU. She was awake and feeling better. She was more alert and oriented. She states she still feels a little bit "foggy". Vision is a little foggy or blurry. She continues to have some headache and neck stiffness. She is otherwise feeling well. Appetite has improved. She states that on Friday she woke up and thought she had pinkeye and sinus congestion. She had headache which she had had for a couple of days and neck stiffness. She went to work and was feeling worse. She began to vomit and then passed out. She did not remember anything after this. Overall today, she is doing much better. She is requesting her Robbins to be removed. She is asking appropriate questions. Objective Vital signs: Temperature 98.0 F 03/19/17 19:51 Pulse Rate 75 03/19/17 19:51 Respiratory Rate 16 03/19/17 19:51 Blood Pressure 124/78 03/19/17 19:51 Pulse Oximetry 100 03/19/17 19:51 Height/Weight/BMI: Height 1.63 m Weight 66.6 kg Body Mass Index 24.5 Comments: GEN-alert, orientated 3, no acute distress HEENT-sclera anicteric, in no scleral erythema, pupils are equal, oropharynx is moist NECK-mild neck stiffness CV-regular rate and rhythm CHEST-clear to auscultation bilaterally ABD-soft, nontender with positive bowel sounds -Robbins in place with good urine output EXT-no edema NEURO-no focal deficits SKIN-warm and dry and without rashes Results - Labs CBC & Chem 7: 03/19/17 04:49 03/19/17 04:49 Microbiology Results: Strep pneumo which was pansensitive - ABG Interpretation ABG results: 03/18/17 04:15 VBG pH 7.380 VBG pCO2 35 L VBG pO2 43 VBG HCO3 21 L VBG Total CO2 21.8 VBG O2 Saturation 78.0 VBG Base Excess -3.8 L Assessment and Plan (1) Bacterial meningitis Current visit: Yes Status: Acute Assessment and Plan: 03/19/2017 Impression Strep pneumoniae Bacterial meningitis-pansensitive Septic shock based on high lactate level-no hypotension Continued leukocytosis, likely in part related to steroids Hyperglycemia-likely secondary to steroids-improving Metabolic acidosis-resolved Borderline hypokalemia-resolved History of sinusitis/sinus surgery Plan The patient was admitted to CCU and started on Rocephin 2 g IV every 12, vancomycin 1.25 g IV every 12, and dexamethasone 10 mg IV every 6. Dr. Barr has seen and evaluated the patient and with culture results showing strep pneumoniae that is pansensitive, she is adjusting her antibiotics to penicillin. She will need 4 days of Decadron. PICC line will be ordered. She will need 14 days total of IV antibiotics. Can change back to Rocephin 2 g IV every 12 when ready for discharge. We'll DC Robbins, increase activity, increase diet. I did go back to see the patient this evening and she was doing well. She is up in the room with assist without difficulties. Vitals are stable. We'll transfer to the floor on telemetry. Continue current treatments. Hospital Course Summary Disclaimer: The visit summary below is not to be considered part of the above Progress Note.
[2017-03-20] MEDS: SALINE FLUSH 10ml SYRINGE IVF PRN ×3 (03:02→18:07)
[2017-03-20] MEDS: MORPHINE SULFATE 2mg INJECTION IVP PRN ×2 (03:02→19:44)
[2017-03-20] MEDS: HYDROCODONE/APAP 5mg/325mg TABLET PO PRN ×3 (05:24→22:09)
[2017-03-20] MEDS: DEXAMETHASONE 4 MG/ML INJECTION IVP SCH ×3 (05:54→17:52)
[2017-03-20] MEDS ORDERED: GLUCOSE ORAL GEL 40% 37.5gm PO PRN (08:02)
[2017-03-20] MEDS ORDERED: DEXTROSE 50% SYRINGE 50ml (1 AMP) IVP PRN (08:02)
[2017-03-20] MEDS: CEFTRIAXONE 2 GM in NS 100 ML IV SCH (08:05)
[2017-03-20] MEDS: 1/2 NS with KCL 20mEq 1,000 ML IV SCH (08:06)
[2017-03-20] MEDS: ENOXAPARIN 40 MG/0.4 ML INJECTION SQ SCH (09:16)
[2017-03-20] MEDS: DEXTROSE IV SCH (10:49)
[2017-03-20] MEDS: PENICILLIN G IV SCH (10:49)
[2017-03-20] MEDS: INSULIN ASPART 100unit/ml INJECTION SQ PRN (11:14)
--- NOTE | 2017-03-20 16:25 | Progress Note ---
<Allyson Mcconnell V - Last Filed: 03/20/17 16:19> - Date 03/20/17 Subjective: Lam is seen today in follow up, She is sitting up in bed and is alert, orientated and pleasant. She reports having a mild intermittent headache however no other symptoms. Appetite is decreased however, she is eating. No dysuria. Objective Vital signs: Temperature 98.3 F 03/20/17 11:29 Pulse Rate 56 L 03/20/17 11:29 Respiratory Rate 16 03/20/17 11:29 Blood Pressure 122/82 03/20/17 11:29 Pulse Oximetry 97 03/20/17 11:29 Height/Weight/BMI: Height 1.63 m Weight 65 kg Body Mass Index 24.5 - Constitutional Present: no acute distress, well nourished, well developed - Routine HEENT Exam Eye: Present: EOMI ENT: Present: mucous membranes moist, dentition normal - Routine Respiratory Exam Present: CTA bilaterally. Absent: wheezes - Routine Cardiovascular Exam Present: RRR, S1, S2. Absent: murmur - Routine Abdominal Exam Present: soft, normoactive bowel sounds, non distended. Absent: tenderness - Routine Extremities Exam Present: full ROM, normal capillary refill - Routine Back/Spine/Pelvis Exam Back/Spine: Present: full ROM - Routine Skin Exam Present: intact, dry, warm - Routine Neurological Exam Present: alert, oriented X3, CN II-XII intact, moving all extremities - Routine Lymphatic Exam Lymphatic: Absent: adenopathy - Routine Psychiatric Exam Present: normal affect, cooperative Results - Labs CBC & Chem 7: 03/20/17 05:08 03/20/17 05:08 Assessment and Plan (1) Bacterial meningitis Current visit: Yes Status: Acute Assessment and Plan: 03/20/2017 Impression Strep pneumoniae Bacterial meningitis-pansensitive Septic shock based on high lactate level-no hypotension Continued leukocytosis, likely in part related to steroids Hyperglycemia-likely secondary to steroids-improving Metabolic acidosis-resolved Borderline hypokalemia-resolved History of sinusitis/sinus surgery Plan Continues on Rocephin 2 gm IV and Vanco every [address] Barr recommends total of 14 days of tx. Decadron 10mg IV every 6 hours for 4 days- this will end tomorrow Advance diet as tolerated Overall feeling much better Hopeful for discharge tomorrow once IV Decadron course has completed Hospital Course Summary Disclaimer: The visit summary below is not to be considered part of the above Progress Note. Hospital Course: 03/20/17 Plan Continues on Rocephin 2 gm IV and Vanco every [address] Barr recommends total of 14 days of tx. Decadron 10mg IV every 6 hours for 4 days- this will end tomorrow Advance diet as tolerated Overall feeling much better Hopeful for discharge tomorrow once IV Decadron course has completed <[email or web address] L - Last Filed: 03/20/17 19:23> - Date 03/20/17 Objective Vital signs: Temperature 96.7 F L 03/20/17 16:00 Pulse Rate 59 L 03/20/17 16:00 Respiratory Rate 16 03/20/17 16:00 Blood Pressure 132/79 03/20/17 16:00 Pulse Oximetry 99 03/20/17 16:00 Height/Weight/BMI: Height 1.63 m Weight 65 kg Body Mass Index 24.5 Results - Labs CBC & Chem 7: 03/20/17 05:08 03/20/17 05:08 Assessment and Plan (1) Bacterial meningitis Current visit: Yes Status: Acute Assessment and Plan: 03/20/2017-I reviewed this chart, the patient history, and the [employer]'s/PA's documented findings as above. We discussed and formulated the assessment and plan as above with the additions below.-Dr. Trevizo The patient was seen earlier this afternoon. She states she's feeling better. Headache is improving. She still has neck stiffness but that is getting better. Her confusion is improving but she is not back to baseline. Vision is normal. She has nausea with Decadron and has had some occasional vomiting. Appetite is starting to get better. She did have episodes of what appear to be V. tach last night. She did notice palpitations. She has not noticed any palpitations today. PICC line was placed yesterday. On exam the patient is alert and oriented and in no acute distress. Chest is clear to auscultation. Cardiovascular reveals a regular rate and rhythm without murmur. Abdomen is soft and nontender. Extremities are free of edema. Lab today reveals white count down to 17.1. Basic metabolic profile is essentially normal other than blood sugar of 143. Magnesium was normal at 2.3. Chest x-ray today on and on my read showed right PICC line tip projects in appropriate position. No acute cardiopulmonary disease. On review of telemetry she had several runs of what appeared to be V. tach. One lasting as long as 23 beats. Others 4-9 beats. She also had several PVCs. V. tach occurred last night and has not recurred today. Impression Strep pneumoniae a bacterial meningitis continues to improve daily. She is tolerating IV penicillin. Nausea and vomiting with Decadron. Nonsustained V. tach Plan Continue with current antibiotics and Decadron. The patient will be finished with Decadron tomorrow. Possible discharge tomorrow on Rocephin 2 g IV every 12 to finish a full 2 weeks of IV antibiotics. Regarding nonsustained V. tach, Dr. Tellez was consulted. PICC line was pulled back 2-3 cm. Metoprolol 25 mg by mouth twice a day was initiated. Echocardiogram was obtained. TSH was obtained and is mildly low. Further workup per Dr. Tellez. Continue on telemetry. Nursing notified to call Dr. Tellez if the patient has recurrence of ventricular arrhythmia. Greater than 30 minutes of time was spent seeing and evaluating the patient and determining care plan. Discussed with Dr. Tellez and Dr. Barr today. Hospital Course Summary Disclaimer: The visit summary below is not to be considered part of the above Progress Note.
--- NOTE | 2017-03-20 16:56 | Cardiology Consult Note ---
<Anne Sage - Last Filed: 03/20/17 18:15> History of Present Illness Consult date: 03/20/17 Requesting physician: Tootie Trevizo Chief complaint: vtach History of present illness: Lam is a 31 year old female with a history of knee arthroscopy and in the last 8 months, some recurrent sinusitis, who presented to the ED with nausea and vomiting along with severe headache. She was alert on ED arrival, and then became more confused and even agitated. CT Head was normal with subsequent LP with CSF consistent with bacterial meningitis and gram stain c/w Strep pneumo. On 03/19/17 she had a PICC inserted and over night started having frequent PVC and Nonsustained runs of V Tach. Dr Tellez is consulted for evaluation and management. Review of Systems - Constitutional Constitutional: Absent: chills, fatigue, fever(s) - EENMT Eyes: Absent: change in vision Balance: Absent: vertigo Mouth/Throat: Absent: sore throat, scratchy throat - Cardiovascular Cardiovascular: Present: palpitations. Absent: chest pain, syncope, dyspnea on exertion Vascular: Absent: pedal edema - Respiratory Respiratory: Absent: cough, dyspnea, dyspnea on exertion - Gastrointestinal Gastrointestinal: Absent: constipation, nausea, vomiting - Genitourinary Genitourinary: Absent: dysuria - Integumentary/Breasts Integumentary: Absent: rash - Psychiatric Psychiatric: Absent: depression - Endocrine Endocrine: Present: palpitations PFSH Patient Stated Medical History Other Respiratory sinus infx easily Hx Renal Disease No Other Infectious Yes: spinal meningitis current Clinic Medical History Bacterial meningitis (Acute Medical) Surgical History: bilateral knee scopes Family History: No FH of sudden cardiac Parents are alive and well Brother is healthy - Social History Smoking status: Never smoker Substance use type: does not use Alcohol intake frequency: does not drink Household members: spouse Current occupational status: employed Current residence: Apartment/Private Home Medications Home Medications Medication Instructions Recorded Confirmed Type No known Home medications [No home 03/17/17 03/17/17 History meds] Allergies Allergy/AdvReac Type Severity Reaction Status Date / Time No Known Allergies Allergy Verified 03/17/17 19:45 Exam Vital signs: Temperature 96.7 F L 03/20/17 16:00 Pulse Rate 59 L 03/20/17 16:00 Respiratory Rate 16 03/20/17 16:00 Blood Pressure 132/79 03/20/17 16:00 Pulse Oximetry 99 03/20/17 16:00 - Constitutional no acute distress, well nourished, cooperative - Routine HEENT Exam Head: Present: normocephalic ENT: Present: mucous membranes moist - Routine Neck Exam Absent: JVD, carotid bruit - Routine Chest/Breast/Axilla Exam Chest wall: Absent: tenderness - Routine Respiratory Exam Present: CTA bilaterally. Absent: rales, wheezes - Routine Cardiovascular Exam Present: RRR, no murmur. Absent: JVD - Routine Abdominal Exam Present: soft, normoactive bowel sounds - Routine Extremities Exam Present: no edema - Routine Skin Exam Present: intact, dry, warm - Routine Neurological Exam Present: alert, oriented X3 - Routine Psychiatric Exam Present: normal affect, normal thought process Results 03/20/17 05:08 03/20/17 05:08 CBC 03/20/17 Range/Units 05:08 WBC 17.1 H (4.5-11.0) T/MM3 RBC 3.55 L (4.00-5.20) M/MM3 Hgb 11.3 L (12-16) GM/DL Hct 34.0 L (36-46) % Plt Count 138 (130-400) T/MM3 Comprehensive Metabolic Panel 03/20/17 Range/Units 05:08 Sodium 145 H (134-144) MEQ/L Potassium 4.1 (3.6-5) MEQ/L Chloride 111 H (98-107) MEQ/L Carbon Dioxide 25 (22-30) MEQ/L BUN 11.0 (7-17) MG/DL Creatinine 0.6 L (0.7-1.2) MG/DL Glucose 143 H (65-110) MG/DL Calcium 8.8 (8.4-10.2) MG/DL Intake and Output 03/20/17 03/20/17 03/20/17 06:59 14:59 22:59 Intake Total 2200 / 2200 548.134 / 548.134 Balance 2200 / 2200 548.134 / 548.134 Intake: IV 328.134 / 328.134 Penicillin G 5 Mmu Inj 24 328.134 / 328.134 mmu In D5w 500 ml @ 20. 833 mls/hr IV .Q24H [facility] Rx#:[id number] Oral 2200 / 2200 220 / 220 Other: # Voids 1 Weight 143 lb 4.807 oz Patient Weight 03/21/17 06:59 Weight 143 lb 4.807 oz - Imaging and Cardiology Echo: pending EKG results: image reviewed Imaging & Cardiology Narrative: Date of Exam: 03/20/17 Ordering Provider: Tootie Trevizo MD Type of Exam(s): XR chest 1V Reason for Exam(s): possible Vtach, look at PICC line Indication: possible Vtach, look at PICC line PROCEDURE: XR chest 1V: Encounter: Initial Comparison: None Findings: Right PICC line in place with the tip projecting over the mid SVC. Lungs are clear. No pleural effusion or pneumothorax. The heart size, pulmonary vascularity and mediastinal contours are within normal limits. Overlying monitoring leads. No significant skeletal abnormality. Impression: 1. Right PICC line tip projects in appropriate position. 2. No acute cardiopulmonary disease. 03/20/17 18:21 - EKG Interpretation EKG: WNL, sinus rhythm Assessment and Plan - Assessment and Plan (1) Bacterial meningitis Current visit: Yes Status: Acute (2) Nonsustained ventricular tachycardia Current visit: Yes Status: Acute Non sustained V Tach - Start Metoprolol 25mg BID - Obtain echocardiogram - Check TSH - Continue to monitor cardiac telemetry. - EKG in the morning - Assessment and Plan 03/20/17 Non sustained V Tach: - Start Metoprolol 25mg BID - Obtain echocardiogram - Check TSH - Continue to monitor cardiac telemetry. - EKG in the morning Thank you for allowing us to participate in the care of this patient. We will follow along with you. Hospital Course Summary Disclaimer: The visit summary below is not to be considered part of the above Progress Note. Hospital Course: 03/20/17 Plan Continues on Rocephin 2 gm IV and Vanco every [address] Barr recommends total of 14 days of tx. Decadron 10mg IV every 6 hours for 4 days- this will end tomorrow Advance diet as tolerated Overall feeling much better Hopeful for discharge tomorrow once IV Decadron course has completed <Carlos Tellez - Last Filed: 03/21/17 14:50> PFSH Patient Stated Medical History Other Respiratory sinus infx easily Hx Renal Disease No Other Infectious Yes: spinal meningitis current Clinic Medical History Bacterial meningitis (Acute Medical) Nonsustained ventricular tachycardia (Acute Medical) Exam Vital signs: Temperature 98.4 F 03/21/17 12:00 Pulse Rate 54 L 03/21/17 12:00 Respiratory Rate 18 03/21/17 12:00 Blood Pressure 124/80 03/21/17 12:00 Pulse Oximetry 95 03/21/17 12:00 Results 03/21/17 04:13 03/21/17 04:13 CBC 03/21/17 Range/Units 04:13 WBC 11.6 H (4.5-11.0) T/MM3 RBC 3.76 L (4.00-5.20) M/MM3 Hgb 11.7 L (12-16) GM/DL Hct 36.5 (36-46) % Plt Count 151 (130-400) T/MM3 Comprehensive Metabolic Panel 03/21/17 Range/Units 04:13 Sodium 144 (134-144) MEQ/L Potassium 3.9 (3.6-5) MEQ/L Chloride 108 H (98-107) MEQ/L Carbon Dioxide 25 (22-30) MEQ/L BUN 13.0 (7-17) MG/DL Creatinine 0.6 L (0.7-1.2) MG/DL Glucose 135 H (65-110) MG/DL Calcium 8.6 (8.4-10.2) MG/DL Intake and Output 03/20/17 03/21/17 03/21/17 22:59 06:59 14:59 Intake Total 1023.604 / 1023.604 Balance 1023.604 / 1023.604 Intake: IV 573.604 / 573.604 Ceftriaxone 2 gm In Ns 100 / 100 100 ml @ 200 mls/hr IV Q12H [facility] Rx#:[id number] Penicillin G 5 Mmu Inj 24 473.604 / 473.604 mmu In D5w 500 ml @ 20. 833 mls/hr IV .Q24H [facility] Rx#:[id number] Oral 450 / 450 Other: Weight 65.2 kg Patient Weight 03/22/17 06:59 Weight 65.2 kg Assessment and Plan - Attestation Attestation Narrative: 03/21/17 14:50 Recommendation After examining the patient I agree with the above assessment. I am involved in the formulation of the patient's plan of care. - Assessment and Plan (1) Bacterial meningitis Current visit: Yes Status: Acute (2) Nonsustained ventricular tachycardia Current visit: Yes Status: Acute Hospital Course Summary Disclaimer: The visit summary below is not to be considered part of the above Progress Note.
--- NOTE | 2017-03-20 17:12 | XRay Report ---
Indication: possible Vtach, look at PICC line PROCEDURE: XR chest 1V: Encounter: Initial Comparison: None Findings: Right PICC line in place with the tip projecting over the mid SVC. Lungs are clear. No pleural effusion or pneumothorax. The heart size, pulmonary vascularity and mediastinal contours are within normal limits. Overlying monitoring leads. No significant skeletal abnormality. Impression: 1. Right PICC line tip projects in appropriate position. 2. No acute cardiopulmonary disease. .
[2017-03-20] MEDS: LACTOBACILLUS (15B cfu) CAPSULE PO SCH (17:52)
[2017-03-20] MEDS: METOCLOPRAMIDE 10mg/2ml INJECTION IVP PRN (18:05)
[2017-03-21] MEDS: METOCLOPRAMIDE 10mg/2ml INJECTION IVP PRN ×6 (00:51→21:38)
[2017-03-21] MEDS: DEXAMETHASONE 4 MG/ML INJECTION IVP SCH ×4 (00:52→18:26)
[2017-03-21] MEDS: MORPHINE SULFATE 2mg INJECTION IVP PRN (01:10)
[2017-03-21] MEDS: SALINE FLUSH 10ml SYRINGE IVF PRN (01:11)
[2017-03-21] MEDS: HYDROCODONE/APAP 5mg/325mg TABLET PO PRN ×2 (06:40→10:38)
[2017-03-21] MEDS ORDERED: PNEUMOCOCCAL 23 VACCINE 0.5ml INJECTION IM ONE (08:44)
[2017-03-21] MEDS ORDERED: IBUPROFEN 600 MG TABLET PO PRN (08:54)
--- NOTE | 2017-03-21 09:02 | XRay Report ---
Indication: CHECK PICC PLACEMENT PROCEDURE: XR chest post-procedure 1V: Encounter: Initial Comparison: March 20, 2017 Findings: Right PICC line remains in place with the tip projecting over the mid SVC. Lungs are stable and clear. No pneumothorax or effusion. Heart size, pulmonary vascularity and mediastinal contours are within normal limits. Impression: Right PICC line tip projecting over the mid SVC. There is a preliminary report by virtual radiologic. .
[2017-03-21] MEDS ORDERED: ONDANSETRON 4 MG/2 ML INJECTION IVP ONE (09:11)
--- NOTE | 2017-03-21 09:20 | ID Progress Note ---
Subjective Date: 03/21/17 Subjective: She had some NSVT, which was thought to be due to her PICC and this was pulled back some. Since that time, she hasn't had any cardiac issues noted on tele per RN. She is having headache this morning, worse when she is not lying flat. She reports some nausea, she thinks due to the decadron. She is having dry heaves when I'm interviewing her. She reports that she started eating better yesterday. No BM for several days. Fever is improved. She hasn't had fever since 03/18. She thinks her confusion is improved. Exam Vital Signs: Temperature 97.3 F 03/21/17 04:00 Pulse Rate 56 L 03/21/17 04:00 Respiratory Rate 16 03/21/17 04:00 Blood Pressure 111/67 03/21/17 04:00 Pulse Oximetry 96 03/21/17 04:00 Height/Weight/BMI: Height 1.63 m Weight 65 kg Body Mass Index 24.5 - Constitutional Present: no acute distress, well nourished, well developed - Routine HEENT Exam Head: Present: normocephalic, atraumatic Eye: Present: EOMI, PERRL ENT: Present: mucous membranes moist - Routine Neck Exam Comments: neck flexion is improved - Routine Respiratory Exam Present: CTA bilaterally - Routine Cardiovascular Exam Present: RRR. Absent: murmur - Routine Abdominal Exam Present: soft, normoactive bowel sounds, non distended. Absent: tenderness - Routine Extremities Exam Absent: cyanosis, clubbing, edema - Routine Skin Exam Present: intact. Absent: rash Comments: RUE PICC line without redness or edema - Routine Neurological Exam Present: alert, oriented X3, CN II-XII intact. 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 She will need to complete 14 days total, so this will go through 03/31/17. Her decadron will be completed today. I'll give her Pneumovax today, and I'll see her in follow up. I'm planning to repeat the 23-valent S. pneumo titers in 4 weeks to evaluate her immune system. She has an appointment in my office at 1pm today for IV antibiotic teaching, and we will provide the ceftriaxone for her.
[2017-03-21] MEDS: PENICILLIN G IV SCH (09:21)
[2017-03-21] MEDS: ENOXAPARIN 40 MG/0.4 ML INJECTION SQ SCH (09:21)
[2017-03-21] MEDS: DEXTROSE IV SCH (09:21)
[2017-03-21] MEDS: LACTOBACILLUS (15B cfu) CAPSULE PO SCH ×3 (09:21→18:24)
[2017-03-21] MEDS: CEFTRIAXONE 2 GM in NS 100 ML IV SCH ×2 (10:39→21:39)
[2017-03-21] MEDS: INSULIN ASPART 100unit/ml INJECTION SQ PRN (11:34)
[2017-03-21] MEDS ORDERED: HYDROMORPHONE 2 MG/ML INJECTION IVP PRN (14:47)
--- NOTE | 2017-03-21 14:58 | Progress Note ---
- Date 03/21/17 Subjective: The patient was seen in her room today. She has had an increase in headache today. She continues to have some nausea and vomiting, it seems to be worse after IV Decadron. She notices some mild blurry vision when her headache is worse. She states her headache seems to be worse when she stands up and is better when she is lying or sitting down. Her neck stiffness is improved. Headache did not improve today with ibuprofen. She is up in the room without difficulty other than her headache. She has had no further palpitations. She is breathing without difficulties. Objective Vital signs: Temperature 98.4 F 03/21/17 12:00 Pulse Rate 54 L 03/21/17 12:00 Respiratory Rate 18 03/21/17 12:00 Blood Pressure 124/80 03/21/17 12:00 Pulse Oximetry 95 03/21/17 12:00 Height/Weight/BMI: Height 1.63 m Weight 65.2 kg Body Mass Index 24.5 Comments: GEN-alert, oriented 3, no acute distress HEENT-I anicteric, pupils are equal round and reactive, extraocular motions are intact, no obvious papilledema is seen NECK-improved range of motion CV-regular rate and rhythm. Telemetry did not show any further ventricular arrhythmias CHEST-clear to auscultation bilaterally ABD-soft, nontender with positive bowel sounds -no Robbins EXT-no edema NEURO-no focal deficits SKIN-warm and dry and without rashes Results - Labs CBC & Chem 7: 03/21/17 04:13 03/21/17 04:13 Labs: White count has improved to 11.6 down from 17.1. Bands are 3%. Assessment and Plan (1) Bacterial meningitis Current visit: Yes Status: Acute Assessment and Plan: 03/21/2017 Impression Strep pneumoniae bacterial meningitis continues to improve daily. White blood cell count down. Bands are 3. Changed to Rocephin 2 g IV daily today in anticipation of dismissal to home soon. Increased headache today, improvement in neck discomfort Nausea and vomiting with Decadron continues. Nonsustained V. tach-resolved since PICC line pulled back a couple of centimeters. Appear to be in the right atrium on echocardiogram. Bradycardia with beta yanet Plan We'll finish 4 days of IV Decadron after this evening's dose. Trial of Dilaudid for headache. If not improving, would recommend repeat CT head. Currently, patient has no focal symptoms. Trial off of beta yanet and monitor for further ventricular arrhythmia on telemetry. If the patient dismisses to home over the weekend, she can come in to the [facility] infusion center for IV antibiotics and then follow-up at Dr. Barr's clinic on Friday for teaching and to obtain Rocephin. Discussed today with Dr. Barr and Dr. Tellez Hospital Course Summary Disclaimer: The visit summary below is not to be considered part of the above Progress Note. Hospital Course: 03/20/17 Plan Continues on Rocephin 2 gm IV and Vanco every [address] Barr recommends total of 14 days of tx. Decadron 10mg IV every 6 hours for 4 days- this will end tomorrow Advance diet as tolerated Overall feeling much better Hopeful for discharge tomorrow once IV Decadron course has completed 03/20/2017-I reviewed this chart, the patient history, and the [employer]'s/PA's documented findings as above. We discussed and formulated the assessment and plan as above with the additions below.-Dr. Trevizo The patient was seen earlier this afternoon. She states she's feeling better. Headache is improving. She still has neck stiffness but that is getting better. Her confusion is improving but she is not back to baseline. Vision is normal. She has nausea with Decadron and has had some occasional vomiting. Appetite is starting to get better. She did have episodes of what appear to be V. tach last night. She did notice palpitations. She has not noticed any palpitations today. PICC line was placed yesterday. On exam the patient is alert and oriented and in no acute distress. Chest is clear to auscultation. Cardiovascular reveals a regular rate and rhythm without murmur. Abdomen is soft and nontender. Extremities are free of edema. Lab today reveals white count down to 17.1. Basic metabolic profile is essentially normal other than blood sugar of 143. Magnesium was normal at 2.3. Chest x-ray today on and on my read showed right PICC line tip projects in appropriate position. No acute cardiopulmonary disease. On review of telemetry she had several runs of what appeared to be V. tach. One lasting as long as 23 beats. Others 4-9 beats. She also had several PVCs. V. tach occurred last night and has not recurred today. Impression Strep pneumoniae a bacterial meningitis continues to improve daily. She is tolerating IV penicillin. Nausea and vomiting with Decadron. Nonsustained V. tach Plan Continue with current antibiotics and Decadron. The patient will be finished with Decadron tomorrow. Possible discharge tomorrow on Rocephin 2 g IV every 12 to finish a full 2 weeks of IV antibiotics. Regarding nonsustained V. tach, Dr. Tellez was consulted. PICC line was pulled back 2-3 cm. Metoprolol 25 mg by mouth twice a day was initiated. Echocardiogram was obtained. TSH was obtained and is mildly low. Further workup per Dr. Tellez. Continue on telemetry. Nursing notified to call Dr. Tellez if the patient has recurrence of ventricular arrhythmia. Greater than 30 minutes of time was spent seeing and evaluating the patient and determining care plan. Discussed with Dr. Tellez and Dr. Barr today. 03/21/17 15:14 03/21/2017 Impression Strep pneumoniae bacterial meningitis continues to improve daily. White blood cell count down. Bands are 3. Changed to Rocephin 2 g IV daily today in anticipation of dismissal to home soon. Increased headache today, improvement in neck discomfort Nausea and vomiting with Decadron continues. Nonsustained V. tach-resolved since PICC line pulled back a couple of centimeters. Appear to be in the right atrium on echocardiogram. Bradycardia with beta yanet Plan We'll finish 4 days of IV Decadron after this evening's dose. Trial of Dilaudid for headache. If not improving, would recommend repeat CT head. Currently, patient has no focal symptoms. Trial off of beta yanet and monitor for further ventricular arrhythmia on telemetry. If the patient dismisses to home over the weekend, she can come in to the [facility] infusion center for IV antibiotics and then follow-up at Dr. Barr's clinic on Friday for teaching and to obtain Rocephin. Discussed today with Dr. Barr and Dr. Tellez
--- NOTE | 2017-03-21 15:00 | Cardiology Progress Note ---
<Anne Sage - Last Filed: 03/21/17 15:10> Subjective Principal diagnosis: V Tach Interval history: Lam is seen today in follow up for nonsustained V Tach. She has had no other incidents of V Tach. She has had some symptomatic bradycardia with lightheadedness, will stop the Metoprolol. She denies chest pain or pressure, palpitations or dyspnea. Exam Vital signs: Temperature 98.4 F 03/21/17 12:00 Pulse Rate 54 L 03/21/17 12:00 Respiratory Rate 18 03/21/17 12:00 Blood Pressure 124/80 03/21/17 12:00 Pulse Oximetry 95 03/21/17 12:00 - Constitutional no acute distress, well nourished, cooperative - Routine HEENT Exam Head: Present: normocephalic ENT: Present: mucous membranes moist - Routine Neck Exam Absent: JVD, carotid bruit - Routine Chest/Breast/Axilla Exam Chest wall: Absent: tenderness - Routine Respiratory Exam Present: CTA bilaterally. Absent: rales, wheezes - Routine Cardiovascular Exam Present: RRR, no murmur - Routine Abdominal Exam Present: soft, normoactive bowel sounds - Routine Extremities Exam Present: no edema - Routine Skin Exam Present: intact, dry, warm - Routine Neurological Exam Present: alert, oriented X3 - Routine Psychiatric Exam Present: normal affect, normal thought process - Urinary Catheter Management Urethral Cath placed during this visit: yes, but has since been removed by the nurse Insertion date: 03/18/17 Insertion time: 04:40 Removal date: 03/19/17 Removal time: 08:30 Results 03/21/17 04:13 03/21/17 04:13 CBC 03/21/17 Range/Units 04:13 WBC 11.6 H (4.5-11.0) T/MM3 RBC 3.76 L (4.00-5.20) M/MM3 Hgb 11.7 L (12-16) GM/DL Hct 36.5 (36-46) % Plt Count 151 (130-400) T/MM3 Comprehensive Metabolic Panel 03/21/17 Range/Units 04:13 Sodium 144 (134-144) MEQ/L Potassium 3.9 (3.6-5) MEQ/L Chloride 108 H (98-107) MEQ/L Carbon Dioxide 25 (22-30) MEQ/L BUN 13.0 (7-17) MG/DL Creatinine 0.6 L (0.7-1.2) MG/DL Glucose 135 H (65-110) MG/DL Calcium 8.6 (8.4-10.2) MG/DL Intake and Output 03/20/17 03/21/17 03/21/17 22:59 06:59 14:59 Intake Total 1023.604 / 1023.604 Balance 1023.604 / 1023.604 Intake: IV 573.604 / 573.604 Ceftriaxone 2 gm In Ns 100 / 100 100 ml @ 200 mls/hr IV Q12H ZACKERY Rx#:[id number] Penicillin G 5 Mmu Inj 24 473.604 / 473.604 mmu In D5w 500 ml @ 20. 833 mls/hr IV .Q24H [id number] Rx#:[id number] Oral 450 / 450 Other: Weight 143 lb 11.862 oz Patient Weight 03/22/17 06:59 Weight 143 lb 11.862 oz Laboratory Results - last 24 hr 03/20/17 03/20/17 03/21/17 05:08 20:03 04:13 WBC 11.6 H RBC 3.76 L Hgb 11.7 L Hct 36.5 MCV 97.1 MCH 31.1 MCHC 32.1 RDW Std Deviation 40.5 Plt Count 151 MPV 10.9 Neutrophils % (Manual) 85.0 H Band Neutrophils % 3.0 Lymphocytes % (Manual) 8.0 L Monocytes % (Manual) 4.0 Neutrophils # (Manual) 9.9 H Band Neutrophils # 0.3 Lymphocytes # (Manual) 0.9 L Monocytes # (Manual) 0.5 RBC Morph Comment Normal Turbidity Sodium Potassium Chloride Carbon Dioxide Anion Gap BUN Creatinine GFR Calculation BUN/Creatinine Ratio Glucose Glucometer 147 Calculated Osmolality Calcium Icterus Index TSH 0.33 L Specimen Hemolysis 03/21/17 03/21/17 03/21/17 04:13 06:43 11:07 WBC RBC Hgb Hct MCV MCH MCHC RDW Std Deviation Plt Count MPV Neutrophils % (Manual) Band Neutrophils % Lymphocytes % (Manual) Monocytes % (Manual) Neutrophils # (Manual) Band Neutrophils # Lymphocytes # (Manual) Monocytes # (Manual) RBC Morph Comment Turbidity < 20 Sodium 144 Potassium 3.9 Chloride 108 H Carbon Dioxide 25 Anion Gap 11 BUN 13.0 Creatinine 0.6 L GFR Calculation 118 BUN/Creatinine Ratio 22 Glucose 135 H Glucometer 116 156 Calculated Osmolality 279 Calcium 8.6 Icterus Index < 2 TSH Specimen Hemolysis < 15 03/21/17 14:06 WBC RBC Hgb Hct MCV MCH MCHC RDW Std Deviation Plt Count MPV Neutrophils % (Manual) Band Neutrophils % Lymphocytes % (Manual) Monocytes % (Manual) Neutrophils # (Manual) Band Neutrophils # Lymphocytes # (Manual) Monocytes # (Manual) RBC Morph Comment Turbidity Sodium Potassium Chloride Carbon Dioxide Anion Gap BUN Creatinine GFR Calculation BUN/Creatinine Ratio Glucose Glucometer 149 Calculated Osmolality Calcium Icterus Index TSH Specimen Hemolysis - Imaging and Cardiology Echo: report reviewed Imaging & Cardiology Narrative: Date of Exam: 03/20/17 Ordering Provider: Tootie Trevizo MD Type of Exam(s): XR chest post-procedure 1V Reason for Exam(s): CHECK PICC PLACEMENT Indication: CHECK PICC PLACEMENT PROCEDURE: XR chest post-procedure 1V: Encounter: Initial Comparison: March 20, 2017 Findings: Right PICC line remains in place with the tip projecting over the mid SVC. Lungs are stable and clear. No pneumothorax or effusion. Heart size, pulmonary vascularity and mediastinal contours are within normal limits. Impression: Right PICC line tip projecting over the mid SVC. There is a preliminary report by virtual radiologic. 03/21/17 15:18 Assessment and Plan - Assessment and Plan (1) Bacterial meningitis Status: Acute (2) Nonsustained ventricular tachycardia Status: Acute No further V Tach since PICC line pulled back and started on BB - Unable to tolerate BB due to symptomatic bradycardia - Will have outpatient Holter monitor put on next week and follow up with Dr. Tellez in 2 weeks - Assessment and Plan 03/20/17 Non sustained V Tach: - Start Metoprolol 25mg BID - Obtain echocardiogram - Check TSH - Continue to monitor cardiac telemetry. - EKG in the morning Thank you for allowing us to participate in the care of this patient. We will follow along with you. 03/21/17 No further V Tach since PICC line pulled back and started on BB - Unable to tolerate BB due to symptomatic bradycardia - Will have outpatient Holter monitor put on next week and follow up with Dr. Tellez in 2 weeks Hospital Course Summary Disclaimer: The visit summary below is not to be considered part of the above Progress Note. Hospital Course: 03/20/17 Plan Continues on Rocephin 2 gm IV and Vanco every [address] Barr recommends total of 14 days of tx. Decadron 10mg IV every 6 hours for 4 days- this will end tomorrow Advance diet as tolerated Overall feeling much better Hopeful for discharge tomorrow once IV Decadron course has completed <Carlos Tellez - Last Filed: 03/24/17 13:56> Exam Vital signs: Temperature 96.1 F L 03/22/17 12:00 Pulse Rate 58 L 03/22/17 14:57 Respiratory Rate 18 03/22/17 12:00 Blood Pressure 118/79 03/22/17 12:00 Pulse Oximetry 99 03/22/17 12:00 - Urinary Catheter Management Urethral Cath placed during this visit: no Results 03/22/17 04:34 03/22/17 04:34 Assessment and Plan - Assessment and Plan (1) Bacterial meningitis Status: Acute (2) Nonsustained ventricular tachycardia Status: Acute - Attestation Attestation Narrative: 03/24/17 13:56 Recommendation After examining the patient I agree with the above assessment. I am involved in the formulation of the patient's plan of care. Hospital Course Summary Disclaimer: The visit summary below is not to be considered part of the above Progress Note.
--- NOTE | 2017-03-21 15:33 | Echocardiogram ---
PROCEDURES March 20, 2017 This is a two-dimensional echo with spectral Doppler, color-flow and M-mode. It was obtained in a patient with ventricular tachycardia. Left atrial dimension is normal. Left ventricular end-diastolic dimension is normal. Left ventricular wall thickness is normal. LV systolic function is normal with ejection fraction of 64%. Right atrium is normal. Right ventricle is normal. Aortic root dimension is normal. Mitral valve is morphologically normal with mild mitral regurgitation. Aortic valve is a trileaflet structure with no stenosis or insufficiency. Tricuspid valve shows mild tricuspid regurgitation with mild pulmonary hypertension with estimated pulmonary artery systolic pressure of 38. Pulmonary valve shows no pulmonary insufficiency. There is no pericardial effusion. A catheter is seen in the right atrium. IMPRESSION 1. Catheter is seen in the right atrial cavity. 2. Normal LV systolic function with ejection fraction of 64%. 3. Mild mitral regurgitation. 4. Mild tricuspid regurgitation with mild pulmonary hypertension with estimated pulmonary artery systolic pressure of 38. MTDD
[2017-03-21] MEDS ORDERED: POLYETHYL GLYCOL 3350 17gm PACKET PO PRN (17:18)
[2017-03-22] MEDS: SALINE FLUSH 10ml SYRINGE IVF PRN (00:08)
[2017-03-22] MEDS: DEXAMETHASONE 4 MG/ML INJECTION IVP SCH (00:08)
[2017-03-22] MEDS: CEFTRIAXONE 2 GM in NS 100 ML IV SCH (08:42)
[2017-03-22] MEDS: LACTOBACILLUS (15B cfu) CAPSULE PO SCH ×2 (08:42→12:40)
[2017-03-22] MEDS: ENOXAPARIN 40 MG/0.4 ML INJECTION SQ SCH (08:42)
[2017-03-22] MEDS: METOCLOPRAMIDE 10mg/2ml INJECTION IVP PRN ×2 (08:43→15:30)
--- NOTE | 2017-03-22 09:40 | Progress Note ---
- Date 03/22/17 Subjective: F/U: Bacterial meningitis Doing well today, other than felt SOA this am. Nursing started O2 for comfort. No cough, but slight congestion. HR still low-in 40's. Not feeling dizzy or unsteady. Eating okay. Did have some nausea and reflux. Had bowel movement ( notes chronic slow stool at baseline). No diarrhea. No stomatitis. Urinating well. No f/c. Slight DEGROOT, but improving. Objective Vital signs: Temperature 98.4 F 03/22/17 08:00 Pulse Rate 49 L 03/22/17 08:00 Respiratory Rate 16 03/22/17 08:00 Blood Pressure 118/67 03/22/17 08:00 Pulse Oximetry 97 03/22/17 08:00 Height/Weight/BMI: Height 1.63 m Weight 65.2 kg Body Mass Index 24.5 - Constitutional Present: no acute distress, well nourished, well developed, average body habitus , cooperative - Routine HEENT Exam Head: Present: normocephalic, atraumatic Eye: Present: EOMI, PERRL. Absent: conjunctival icterus - Routine Respiratory Exam Present: CTA bilaterally. Absent: rales, respiratory distress, rhonchi, wheezes , crackles - Routine Cardiovascular Exam Present: no murmur, bradycardia - Routine Abdominal Exam Present: soft, normoactive bowel sounds, non distended, non tender. Absent: guarding - Routine Extremities Exam Present: cyanosis, clubbing, no edema, pulses intact - Routine Musculoskeletal Exam Musculoskeletal: Present: no clubbing or cyanosis, normal strength - Routine Skin Exam Present: dry, warm - Routine Neurological Exam Present: alert, oriented X3, CN II-XII intact, moving all extremities, vision grossly intact, hearing grossly intact, normal speech. Absent: motor deficit, altered mental status - Routine Psychiatric Exam Present: normal affect, normal thought process, cooperative, good insight, good judgment Results - Labs CBC & Chem 7: 03/22/17 04:34 03/22/17 04:34 Assessment and Plan (1) Bacterial meningitis Current visit: Yes Status: Acute Assessment and Plan: Impression Strep pneumoniae bacterial meningitis Headache - improving Nausea and vomiting - resolving Nonsustained V. tach-resolved since PICC line pulled back a couple of centimeters. Appear to be in the right atrium on echocardiogram. Bradycardia with beta yanet Plan Continue Rocephin 2 grams IV BID until 02/28. Arrangements made for apt with Dr Barr's office on Friday03/24/17 at 1300 to get supplies. Will have patient receive Rocephin IV in infusion center for four doses ( Last dose there Friday am on the ). May continue [place]/ibuprofen for pain control. Reglan for nausea. Will have nursing ambulate patient this morning to monitor symptoms - HR, and check for unsteadiness when up. Anticipate discharge to home this afternoon. F/U with Dr Barr on Friday03/24/17 at 1300 for supplies (can call office if would like to move apt up sooner). F/U with Dr Cohn in 1 week for medical evaluation. Recommend returning to work on Friday03/31/17. See orders for details. Case discussed with CM and Dr Barr. Time spent with care and discharge greater than 30 minutes. DVT Prophylaxis: Lovenox Resuscitation Status: Full Code Hospital Course Summary Disclaimer: The visit summary below is not to be considered part of the above Progress Note. Hospital Course: 03/17/17 Acute bacterial (Strep pneumoniae) meningitis with metabolic encephalopathy-- ICU admit as glucose 30 , WBC 2980 with 100%PMNs, and TProtein 531 very concerning. NPO, IVF, Ceftriaxone 2q q12, Vancomycin 20mg/kg q12, and dexamethasone 10mg IV q6 all indicated. IVF and prn for nausea. Greatest risk is risk for respiratory decline/aspiration now. AM labs with lactate and vbg. Unlikely severe sepsis though with bicarb 24, and note BP fine. Unlikely Ig deficiency as no recurrent infections as a youth, but consider ID consult. Increased risk for the above with recent sinus infections. 03/18/17 I did call and speak with Dr. Barr, infectious disease specialist this morning. She agrees with current antibiotics and dexamethasone. She would not recommend any changes at this time. Regarding elevated lactate, the patient has not been hypotensive, she has good urine output, and no skin mottling. Will repeat lactate level later this morning. She was given another 500 cc normal saline bolus this morning. Repeat CMP this morning. PICC line for good IV access all the patient is on vancomycin. Continue to monitor closely in CCU. Dr Miner consulted for Critical Care evaluation. From a pulmonary standpoint, patient has good oxygenation. We'll monitor Accu-Cheks and give sliding scale insulin if needed. Add Lovenox for DVT prevention. 03/19/17 Dr. Barr has seen and evaluated the patient and with culture results showing strep pneumoniae that is pansensitive, she is adjusting her antibiotics to penicillin. She will need 4 days of Decadron. PICC line will be ordered. She will need 14 days total of IV antibiotics. Can change back to Rocephin 2 g IV every 12 when ready for discharge. We'll DC [place], increase activity, increase diet. Transfer to medical floor for continuation of care - patient's clinical status improving. 03/20/17 Continues on Rocephin 2 gm IV and Vanco every [address] Barr recommends total of 14 days of tx. Decadron 10mg IV every 6 hours for 4 days- this will end tomorrow. Advance diet as tolerated. Overall feeling much better. Continue with current antibiotics and Decadron. The patient will be finished with Decadron tomorrow. Possible discharge tomorrow on Rocephin 2 g IV every 12 to finish a full 2 weeks of IV antibiotics. Regarding nonsustained V. tach, Dr. Tellez was consulted. PICC line was pulled back 2-3 cm. Metoprolol 25 mg by mouth twice a day was initiated. Echocardiogram was obtained. TSH was obtained and is mildly low. Further workup per Dr. Tellez. Continue on telemetry. Nursing notified to call Dr. Tellez if the patient has recurrence of ventricular arrhythmia. 03/21/2017 We'll finish 4 days of IV Decadron after this evening's dose. Trial of Dilaudid for headache. If not improving, would recommend repeat CT head. Currently, patient has no focal symptoms. Trial off of beta yanet and monitor for further ventricular arrhythmia on telemetry. If the patient dismisses to home over the weekend, she can come in to the [facility] infusion center for IV antibiotics and then follow-up at Dr. Barr's clinic on Friday for teaching and to obtain Rocephin. 03/22/17 Continue Rocephin 2 grams IV BID until 02/28. Arrangements made for apt with Dr aBrr's office on Friday03/24/17 at 1300 to get supplies. Will have patient receive Rocephin IV in infusion center for four doses ( Last dose there Friday am on the ). May continue [place]/ibuprofen for pain control. Reglan for nausea. Will have nursing ambulate patient this morning to monitor symptoms - HR, and check for unsteadiness when up. Anticipate discharge to home this afternoon. F/U with Dr Barr on Friday03/24/17 at 1300 for supplies (can call office if would like to move apt up sooner). F/U with Dr Cohn in 1 week for medical evaluation. Recommend returning to work on Friday03/31/17. See orders for details.
[2017-03-22 12:33] VITALS: BP 118/79; RESP 18; TEMP 96.1; O2SAT 99
[2017-03-22] MEDS: HYDROCODONE/APAP 5mg/325mg TABLET PO PRN (14:07)
--- NOTE | 2017-03-22 14:07 | Discharge Summary ---
Discharge Information Date of admission: 03/17/17 22:44 Anticipated date of discharge: 03/22/17 Attending Physician: Tootie Trevizo MD Primary care physician: Lynne Cohn DO Consults: Physician Consult: Mera Barr Reason For Exam: bacterial meningitis Physician Consult: Jose Miner Reason For Exam: Critical Care Evaluation Physician Consult: Carlos Tellez Reason For Exam: possible VTach - Discharge Diagnosis (1) Bacterial meningitis Status: Acute Discharge diagnosis Strep pneumoniae bacterial meningitis Associated conditions and complications Septic shock based on high lactate level. The patient has not been hypotensive. Urine output has been good. No mottling of the skin. Good capillary refill. Encephalopathy - resolved Leukocytosis - resolved Hyperglycemia-likely secondary to steroids Metabolic acidosis - resolved Headache - improving Nausea and vomiting - resolving Nonsustained Ventricular tachycardia - resolved since PICC line pulled back a couple of centimeters (appears to be in the right atrium on echocardiogram). Bradycardia with beta yanet Hypokalemia (POA) - improved History of sinusitis/sinus surgery - Procedures Procedures: 02/14/17 - Lumbar Puncture - Dr Garrido Date of Exam: 03/20/17 Type of Exam: US echo doppler complete Left atrial dimension is normal. Left ventricular end-diastolic dimension is normal. Left ventricular wall thickness is normal. LV systolic function is normal with ejection fraction of 64%. Right atrium is normal. Right ventricle is normal. Aortic root dimension is normal. Mitral valve is morphologically normal with mild mitral regurgitation. Aortic valve is a trileaflet structure with no stenosis or insufficiency. Tricuspid valve shows mild tricuspid regurgitation with mild pulmonary hypertension with estimated pulmonary artery systolic pressure of 38. Pulmonary valve shows no pulmonary insufficiency. There is no pericardial effusion. A catheter is seen in the right atrium. IMPRESSION 1. Catheter is seen in the right atrial cavity. 2. Normal LV systolic function with ejection fraction of 64%. 3. Mild mitral regurgitation. 4. Mild tricuspid regurgitation with mild pulmonary hypertension with estimated pulmonary artery systolic pressure of 38. - Laboratory Labs: Admit Lab 03/17/17 18:51 WBC 16.1 H Hgb 13.8 Hct 41.0 MCV 96.2 Plt Count 160 Neutrophils % (Manual) 74.0 H Band Neutrophils % 7.0 H Lymphocytes % (Manual) 17.0 L Monocytes % (Manual) 2.0 Admit Lab 03/17/17 03/18/17 18:51 00:41 Sodium 141 Potassium 3.4 L Chloride 105 Carbon Dioxide 24 Anion Gap 12 BUN 10.0 Creatinine 0.6 L GFR Calculation 118 BUN/Creatinine Ratio 17 Glucose 128 H Calculated Osmolality 272 Calcium 9.2 Total Bilirubin 0.70 AST 21 ALT 36 Alkaline Phosphatase 61 Total Protein 7.1 Albumin 4.4 Globulin 2.7 Albumin/Globulin Ratio 1.6 Plasma Lactate 4.6 H* CSF serology 03/17/17 21:27 Strep pneumoniae (PCR) Detected A Laboratory Tests 03/20/17 05:08 IgG 708.80 Laboratory Tests 03/20/17 05:08 TSH 0.33 L 03/22/17 04:34 03/22/17 04:34 - Microbiology CSF culture: Strep pneumoniae - pansensitive - Radiology Radiology: Date of Exam: 03/17/17 PROCEDURE: CT head/brain wo con FINDINGS: The ventricles are of normal size, shape, and configuration for the patient's age. There is no evidence of acute intracranial hemorrhage, midline displacement, or mass effect. The CT attenuation of the brain parenchyma is normal within the cerebellum, brain stem, and cerebral hemispheres. The tympanic cavities and mastoid air cells are free of appreciable disease. There are no definite fractures of the skull base, calvarium, or visualized portion of the midface. Moderate left maxillary sinus mucosal thickening. Postoperative changes in the left ethmoid air cells with mucosal disease. IMPRESSION: No CT evidence of acute intracranial abnormality. Date of Exam: 03/20/17 PROCEDURE: XR chest 1V Findings: Right PICC line in place with the tip projecting over the mid SVC. Lungs are clear. No pleural effusion or pneumothorax. The heart size, pulmonary vascularity and mediastinal contours are within normal limits. Overlying monitoring leads. No significant skeletal abnormality. Impression: 1. Right PICC line tip projects in appropriate position. 2. No acute cardiopulmonary disease. History of Present Illness HPI: Mrs. Villa is a 31yo woman with h/o knee arthroscopy and in the last 8 months some recurrent sinusitis who presents with onset of not feeling was after noon and texting her at 1330 re this. He provides history along with ED provider as patient now has GCS of 8 (2+3+3). Nausea and vomiting along with severe headache were reported prior to ED eval with then zofran and compazine given. She was alert on ED arrival, and then became more confused and even agitated. CT Head was normal with subsequent LP with CSF consistent with bacterial meningitis and now gram stain c/w Strep pneumo. No emesis the last ours, with the patient occasionally moaning on transfer but not now. No antibiotics for 2 months prior to a gram of ceftriaxone and vancomycin in the ED. denies any other recent fevers, chills, headaches or illness except the sinusitis months ago. For complete details of the H&P refer to that document. Objective Vital signs: Temperature 96.1 F L 03/22/17 12:00 Pulse Rate 54 L 03/22/17 12:00 Respiratory Rate 18 03/22/17 12:00 Blood Pressure 118/79 03/22/17 12:00 Pulse Oximetry 99 03/22/17 12:00 Height/Weight/BMI: Height 1.63 m Weight 65.2 kg Body Mass Index 24.5 Hospital Course This is a general summary of the patient's hospital course. For more details refer to the complete medical record. Hospital course: 03/17/17 Admission Acute bacterial (Strep pneumoniae) meningitis with metabolic encephalopathy-- ICU admit as glucose 30 , WBC 2980 with 100%PMNs, and TProtein 531 very concerning. NPO, IVF, Ceftriaxone 2q q12, Vancomycin 20mg/kg q12, and dexamethasone 10mg IV q6 all indicated. IVF and prn for nausea. Greatest risk is risk for respiratory decline/aspiration now. AM labs with lactate and vbg. Unlikely severe sepsis though with bicarb 24, and note BP fine. Unlikely Ig deficiency as no recurrent infections as a youth, but consider ID consult. Increased risk for the above with recent sinus infections. 03/18/17 Santhosh I did call and speak with Dr. Barr, infectious disease specialist this morning. She agrees with current antibiotics and dexamethasone. She would not recommend any changes at this time. Regarding elevated lactate, the patient has not been hypotensive, she has good urine output, and no skin mottling. Will repeat lactate level later this morning. She was given another 500 cc normal saline bolus this morning. Repeat CMP this morning. PICC line for good IV access all the patient is on vancomycin. Continue to monitor closely in CCU. Dr Miner consulted for Critical Care evaluation. From a pulmonary standpoint, patient has good oxygenation. We'll monitor Accu-Cheks and give sliding scale insulin if needed. Add Lovenox for DVT prevention. 03/19/17 Dr. Barr has seen and evaluated the patient and with culture results showing strep pneumoniae that is pansensitive, she is adjusting her antibiotics to penicillin. She will need 4 days of Decadron. PICC line will be ordered. She will need 14 days total of IV antibiotics. Can change back to Rocephin 2 g IV every 12 when ready for discharge. We'll DC [place], increase activity, increase diet. Transfer to medical floor for continuation of care - patient's clinical status improving. 03/20/17 Continues on Rocephin 2 gm IV and Vanco every [address] Barr recommends total of 14 days of tx. Decadron 10mg IV every 6 hours for 4 days- this will end tomorrow. Advance diet as tolerated. Overall feeling much better. Continue with current antibiotics and Decadron. The patient will be finished with Decadron tomorrow. Possible discharge tomorrow on Rocephin 2 g IV every 12 to finish a full 2 weeks of IV antibiotics. Regarding nonsustained V. tach, Dr. Tellez was consulted. PICC line was pulled back 2-3 cm. Metoprolol 25 mg by mouth twice a day was initiated. Echocardiogram was obtained. TSH was obtained and is mildly low. Further workup per Dr. Tellez. Continue on telemetry. Nursing notified to call Dr. Tellez if the patient has recurrence of ventricular arrhythmia. 03/21/2017 We'll finish 4 days of IV Decadron after this evening's dose. Trial of Dilaudid for headache. If not improving, would recommend repeat CT head. Currently, patient has no focal symptoms. Trial off of beta yanet and monitor for further ventricular arrhythmia on telemetry. If the patient dismisses to home over the weekend, she can come in to the [facility] infusion center for IV antibiotics and then follow-up at Dr. Barr's clinic on Friday for teaching and to obtain Rocephin. 03/22/17 Juliet Continue Rocephin 2 grams IV BID until 02/28. Arrangements made for apt with Dr Barr's office on Friday03/24/17 at 1300 to get supplies. Will have patient receive Rocephin IV in infusion center for four doses ( Last dose there Friday am on the ). May continue [place]/ibuprofen for pain control. Reglan for nausea. Topical Aspercreme as needed. Will have nursing ambulate patient this morning to monitor symptoms - HR, and check for unsteadiness when up. Anticipate discharge to home this afternoon. F/U with Dr Barr on Friday03/24/17 at 1300 for supplies (can call office if would like to move apt up sooner). F/U with Dr Cohn in 1 week for medical evaluation. Recommend returning to work on Friday03/31/17. See orders for details. Time spent with patient: discharge greater than 30 minutes DVT Prophylaxis: SCD's Discharge Plan - Discharge Disposition Discharge Date: 03/22/17 Disposition: Discharged Home, Self-Care *Condition: Stable Reason For Visit (Visit label in EMR): strepococcal meningitis - Discharge Medications *Discharge Medications: New Acetaminophen [Tylenol] 500 mg PO Q5H PRN tablet PRN Reason: Discomfort Acidoph/L.bulg/Bif.b/S.thermop [Bacid Caplet] 2 cap PO TIDWM tablet Hydrocodone/APAP 5/325 [[place] 5/325] 1 - 2 tab PO Q4H PRN #30 tab PRN Reason: Pain Ibuprofen [Motrin] 600 mg PO Q6H PRN tablet PRN Reason: Pain Lidocaine HCl [Aspercreme] 1 applicatio TP QID PRN #1 tube PRN Reason: Pain Metoclopramide [Reglan] 10 mg PO Q6H PRN #30 tab PRN Reason: Nausea Ceftriaxone [Rocephin] 2 gm IV Q12H vial PEG 3350 17gm PACKET [Miralax] 17 gm PO BID PRN packet PRN Reason: Constipation - Discharge Packet/Instructions *Diet: Regular - Yogurt to help bowel function. *Activity: As tolerated. Return to work on 03/31/17 *Pain Management/Treatment: Tylenol, ibuprofen, [place] as needed. Aspercreme topically as needed (max 4 times a day). *Wound Care: n/a *Expected Signs/Symptoms: Improvement of strenght. Resolution of headache. *Notify Physician if: Temp >100.4. Worsening headache, confusion, somnolence. *During Business Hours Contact: Dr Cohn or Dr Barr. *After Business Hours Contact: Call [facility] [place] and have your care provider contacted. *Pending Lab/Results: Follow up w/Provider - Referrals/Follow Up - Patient Handouts - Dismissal Complete Discharge Instructions are:: Complete Attestation Narriative - Attestation Attestation Narrative: 03/22/17 14:17 I have independently interviewed and examined patient prior to discharge. See my progress note from today for details. Medically stable for discharge to home.
[2017-03-22 14:57] VITALS: PULSE 58
--- NOTE | 2017-03-22 15:23 | Work/School Release ---
Work/School Release - Date Date: 03/22/17 - Work Release Remain off work/school for:: Rosario Villa was hospitalized at [facility] from 03/17/17 until . She may return to work on 03/31/17. Thank you
== END 2017-03-22 16:11 | disposition home or self-care (01) | DRG 871 ==
LOC: ED 18:34 → CCU 22:44 → SUATTDRO 22:44 → CCU 22:50 → MED 03-19 19:27
PROVIDERS: ADMIT Hospitalist; ATTEND Internal Medicine